=== PATIENT | male | born 1990 | race Caucasian/White ===

== ENCOUNTER 2016-10-24 14:22 | Inpatient (IN) ==
[2016-10-24] MEDS ORDERED: 0.9 % Sodium Chloride 1,000 ML IVC ONE ×2 (14:54→15:20)
[2016-10-24] MEDS: Ibuprofen 600 MG TABLET PO PRN (15:19)
[2016-10-24 15:22] LABS: Bilirubin,Urine Small (Negative); Blood,Urine Trace (Negative); Clarity,Urine Clear (Clear); Color,Urine Dark Yellow (Yellow); Glucose,Urine (UA) Normal (Normal); Ketones,Urine Trace mg/dL (Negative); Leukocyte Esterase,Urine Negative (Negative); Nitrite,Urine Negative (Negative); Protein,Urine 100 mg/dL (Neg-Trace); Specific Gravity,Urine > 1.030 (1.010-1.025); Urobilinogen,Urine Normal (Normal)
[2016-10-24 15:25] LABS: Bacteria,Urine None Seen per hpf (None-Few); Hyaline Casts,Urine None Seen per lpf (None-Few); RBC,Urine 0-3 per hpf (0-3); Squamous Epithelial Cell,Urine Moderate per lpf (None-Few); WBC,Urine 0-3 per hpf (0-3)
[2016-10-24] MEDS ORDERED: Ipratropium/Albuterol Neb 3 ML IH ONE (15:34)
[2016-10-24] MEDS ORDERED: methylPREDNISolone 125 MG in 0.9 % Sodium Chloride 100 ML IVPB ONE (15:34)
--- NOTE | 2016-10-24 15:34 | Emergency Department Note ---
Disposition Clinical Impression: Pneumonia Qualifiers: Pneumonia type: due to unspecified organism Laterality: unspecified laterality Lung location: unspecified part of lung Qualified Code(s): J18.9 - Pneumonia, unspecified organism Sepsis Qualifiers: Sepsis type: sepsis due to unspecified organism Qualified Code(s): A41.9 - Sepsis, unspecified organism Disposition: Admitted As Inpatient Condition: Good Referrals: NONE,PCP [Primary Care Provider] - Forms: ED Satisfaction Letter Time of Disposition: 16:43 General Adult HPI - General Chief complaint: ED Headache Stated complaint: PITTS Cough Time Seen by Provider: 10/24/16 14:54 Source: patient Limitations: no limitations Nursing Notes Reviewed: Yes Vital Signs Reviewed: Yes - History of Present Illness HPI Narrative: 26 year old male prsents to the ED with complaint of feeling ill for the past few days. State he has had a productive cough with fever of 102F at home in aiddition to a headache now and feels like this may be his pnuemoina. 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 PAtinet states that he was most recently admitted to [facility] in [place] for pneumonia sepsis. PAtient states that that he has also been nauseated and vomitting. He denies neck pain or menigneal syptoms at this time. Patient states he has not been around any other sick individuals or anyone else with simliar symptoms. Patient states that he does smoke but does not use inhalers. Pain Scale: 2 - Related Data Allergies Allergy/AdvReac Type Severity Reaction Status Date / Time No Known Allergies Allergy Verified 10/24/16 14:41 Constitutional: Reports: fever, chills, weakness. Denies: weight change Eyes: Denies: eye pain, eye discharge, vision change ENT ED: Denies: ear pain, throat pain, dental pain, hearing loss, epistaxis, congestion, dysphagia Cardiovascular: Reports: chest pain. Denies: palpitations, dyspnea on exertion , edema, syncope Respiratory: Reports: cough, dyspnea, wheezes. Denies: hemoptysis, stridor Gastrointestinal: Denies: abdominal pain, nausea, vomiting, diarrhea, constipation, hematemesis, melena, hematochezia Genitourinary: Denies: urgency, dysuria, frequency, hematuria Musculoskeletal: Denies: back pain, neck pain, arthralgia, myalgia Integumentary: Denies: rash, abrasion, lesions Neurological: Reports: headache. Denies: weakness, numbness, paresthesias, confusion, abnormal gait, vertigo Psychiatric: Denies: anxiety, depression, suicidal thoughts, homicidal thoughts , auditory hallucinations, visual hallucinations Endocrine: Denies: fatigue Hematological/Lymphatic: Denies: easy bleeding, easy bruising Allergic/Immunologic: Denies: facial swelling, urticaria Past Medical History - Past Medical History Medical history: Reports: other Psychiatric history: Reports: no psych history - Social History Smoking Status: Current every day smoker Smokeless Tobacco Status: No Alcohol use: Reports: none Drug use: Reports: other Physical Exam - General Limitations: no limitations General appearance: alert - Head Head exam: atraumatic, normocephalic, normal inspection - Eye Eye exam: Present: normal appearance, PERRL, EOMI - Expanded Eye Exam Pupils: Left: reactive - ENT ENT exam: normal exam, normal oropharynx, mucous membranes moist - Expanded ENT Exam External ear exam: Present: normal external inspection Mouth exam: Present: normal external inspection Teeth exam: Present: normal inspection Throat exam: Present: normal inspection - Neck Neck exam: Present: normal inspection, full ROM, trachea midline - Chest Chest inspection: Present: normal inspection, symmetric chest wall rise - Respiratory Respiratory exam: Present: wheezes - Cardiovascular Cardiovascular exam: Present: normal rhythm, tachycardia, normal heart sounds - Abdominal Exam Abdominal exam: Present: soft, Non-Tender. Absent: tenderness, distention, guarding, rebound, rigidity - Extremities Exam Extremities exam: Present: normal inspection, full ROM. Absent: tenderness, pedal edema - Expanded Upper Extremity Exam Shoulder exam: Present: normal inspection, full ROM Arm exam: Present: normal inspection, full ROM Elbow exam: Present: normal inspection, full ROM Forearm/Wrist exam: Present: normal inspection, full ROM Hand exam: Present: normal inspection, full ROM Vascular exam: Normal: capillary refill, radial pulse - Expanded Lower Extremity Exam Hip/Pelvis exam: Present: normal inspection, full ROM Upper leg exam: Present: normal inspection, full ROM Knee exam: Present: normal inspection, full ROM Lower leg exam: Present: normal inspection, full ROM Ankle exam: Present: normal inspection, full ROM Foot/toe exam: Present: normal inspection, full ROM Neurovascular/Tendon exam: Absent: motor deficit, sensory deficit, tendon deficit - Back Exam Back exam: Present: normal inspection, full ROM. Absent: tenderness - Neurological Exam Neurological exam: Present: alert, oriented X3 - Expanded Neurological Exam Patient oriented to: Present: person, place, time Coma Scale Eye Opening: Spontaneous Coma Scale Motor Response: Obeys Commands Coma Scale Verbal Response: Oriented Coma Scale Total: 15 - Psychiatric Psychiatric exam: Present: normal affect, normal mood - Skin Skin exam: Present: warm, dry, intact, normal color Course Course Narrative: we will do a sepsis workup on patient in addition to a CTA chest to rule out endocarditis/pneumonia. IVF and levauqin with brething treatments for therapy. - Reevaluation(s) Reevaluation #1: updated patient on results. WE will admit to medicine and start zosyn with levaquin. IVF running. Patinet is agreeable to plan. Time: 16:43 Reevaluation #2: patient has been updated and is agreeable to plan. Time: 16:54 - Consultations Consultation #1: discussed case with Dr. Negron and she accepts patien to her service. Time: 16:54 Vital Signs Temperature 103 F H 10/24/16 14:35 Pulse Rate 132 10/24/16 14:35 Respiratory Rate 18 10/24/16 14:35 Blood Pressure 125/75 10/24/16 14:35 O2 Sat by Pulse Oximetry 95 10/24/16 14:35 Temperature 103 F H 10/24/16 14:35 Pulse Rate 104 10/24/16 16:07 Respiratory Rate 18 10/24/16 16:27 Blood Pressure 116/58 10/24/16 16:07 O2 Sat by Pulse Oximetry 99 10/24/16 16:27 Oxygen Delivery Oxygen Delivery Room Air Medical Decision Making - Lab Data Result diagrams: 10/24/16 15:33 10/24/16 15:33 Lab Results 10/24/16 10/24/16 10/24/16 Range/Units 15:06 15:33 15:33 WBC 8.0 (4.3-11.1) K/mcL RBC 4.95 (4.19-5.50) M/mcL Hgb 13.9 (12.9-16.9) g/dL Hct 42.3 (37.5-50.1) % MCV 85.5 (83.0-100.0) fL MCH 28.1 (28.0-33.3) pg MCHC 32.9 (31.6-35.5) g/dL RDW 14.6 H (11.5-14.5) % Plt Count 94 L (140-400) K/mcL MPV 11.5 (9.4-12.4) fL Immature Gran % 0.5 (0-4) % Seg Neutrophils % 82.7 % Lymphocytes % 8.8 % Monocytes % 7.9 % Eosinophils % 0.0 % Basophils % 0.1 % Neutrophils # 6.6 (1.6-8.9) K/mcL Lymphocytes # 0.7 (0.6-4.6) K/mcL Monocytes # 0.6 (0.0-1.3) K/mcL Eosinophils # 0.0 (0.0-0.6) K/mcL Basophils # 0.0 (0.0-0.2) K/mcL Platelet Estimate Decreased L (Normal) Immature Plt Fraction 6.6 H (1.1-6.1) % PT 18.3 H (9.4-12.1) Seconds INR 1.7 APTT 31.8 (26.0-36.0) Seconds Sodium (136-145) mEq/L Potassium (3.5-4.5) mEq/L Chloride (98-109) mEq/L Carbon Dioxide (19-29) mEq/L BUN (8-26) mg/dL Creatinine (0.72-1.25) mg/dL Est GFR ( Amer) (> 60) Est GFR (Non-Af Amer) (> 60) BUN/Creatinine Ratio (6-26) Glucose (70-99) mg/dL Calculated Osmolality (280-300) Lactic Acid (0.5-2.2) mmol/L Calcium (8.6-10.8) mg/dL Phosphorus (2.3-4.7) mg/dL Magnesium (1.6-2.6) mg/dL Total Bilirubin (0.2-1.2) mg/dL Direct Bilirubin (0.0-0.5) mg/dL Indirect Bilirubin (0.0-1.2) mg/dL AST (5-34) Units/L ALT (0-55) Units/L Alkaline Phosphatase (38-126) Units/L Troponin I (0-0.03) ng/mL Serum Total Protein (6.0-8.3) g/dL Albumin (3.5-5.0) g/dL Globulin (2.4-3.5) g/dL Albumin/Globulin Ratio (1.1-2.2) Lipase (8-78) Units/L Urine Color Dark Yellow (Yellow) Urine Clarity Clear (Clear) Urine pH 6.0 (5.0-8.0) pH Units Ur Specific [place] > 1.030 H (1.010-1.025) Urine Protein 100 H (Neg-Trace) mg/dL Urine Glucose (UA) Normal (Normal) mg/dL Urine Ketones Trace H (Negative) mg/dL Urine Blood Trace H (Negative) Urine Nitrite Negative (Negative) Urine Bilirubin Small H (Negative) Urine Urobilinogen Normal (Normal) mg/dL Ur Leukocyte Esterase Negative (Negative) Urine Microscopic RBC 0-3 (0-3) per hpf Urine Microscopic WBC 0-3 (0-3) per hpf Ur Squamous Epith Cells Moderate H (None-Few) per lpf Urine Bacteria None Seen (None-Few) per hpf Hyaline Casts None Seen (None-Few) per lpf Ur Culture Indicated? NO (NO) 10/24/16 10/24/16 10/24/16 Range/Units 15:33 15:33 15:33 WBC (4.3-11.1) K/mcL RBC (4.19-5.50) M/mcL Hgb (12.9-16.9) g/dL Hct (37.5-50.1) % MCV (83.0-100.0) fL MCH (28.0-33.3) pg MCHC (31.6-35.5) g/dL RDW (11.5-14.5) % Plt Count (140-400) K/mcL MPV (9.4-12.4) fL Immature Gran % (0-4) % Seg Neutrophils % % Lymphocytes % % Monocytes % % Eosinophils % % Basophils % % Neutrophils # (1.6-8.9) K/mcL Lymphocytes # (0.6-4.6) K/mcL Monocytes # (0.0-1.3) K/mcL Eosinophils # (0.0-0.6) K/mcL Basophils # (0.0-0.2) K/mcL Platelet Estimate (Normal) Immature Plt Fraction (1.1-6.1) % PT (9.4-12.1) Seconds INR APTT (26.0-36.0) Seconds Sodium 132 L (136-145) mEq/L Potassium 3.7 (3.5-4.5) mEq/L Chloride 104 (98-109) mEq/L Carbon Dioxide 22 (19-29) mEq/L BUN 11 (8-26) mg/dL Creatinine 0.93 (0.72-1.25) mg/dL Est GFR ( Amer) > 60 (> 60) Est GFR (Non-Af Amer) > 60 (> 60) BUN/Creatinine Ratio 12 (6-26) Glucose 139 H (70-99) mg/dL Calculated Osmolality 276 L (280-300) Lactic Acid 1.0 (0.5-2.2) mmol/L Calcium 8.8 (8.6-10.8) mg/dL Phosphorus 1.4 L (2.3-4.7) mg/dL Magnesium 1.7 (1.6-2.6) mg/dL Total Bilirubin 0.6 (0.2-1.2) mg/dL Direct Bilirubin 0.3 (0.0-0.5) mg/dL Indirect Bilirubin 0.3 (0.0-1.2) mg/dL AST 17 (5-34) Units/L ALT 14 (0-55) Units/L Alkaline Phosphatase 80 (38-126) Units/L Troponin I 0.01 (0-0.03) ng/mL Serum Total Protein 7.0 (6.0-8.3) g/dL Albumin 3.5 (3.5-5.0) g/dL Globulin 3.5 (2.4-3.5) g/dL Albumin/Globulin Ratio 1.0 L (1.1-2.2) Lipase < 10 (8-78) Units/L Urine Color (Yellow) Urine Clarity (Clear) Urine pH (5.0-8.0) pH Units Ur Specific [place] (1.010-1.025) Urine Protein (Neg-Trace) mg/dL Urine Glucose (UA) (Normal) mg/dL Urine Ketones (Negative) mg/dL Urine Blood (Negative) Urine Nitrite (Negative) Urine Bilirubin (Negative) Urine Urobilinogen (Normal) mg/dL Ur Leukocyte Esterase (Negative) Urine Microscopic RBC (0-3) per hpf Urine Microscopic WBC (0-3) per hpf Ur Squamous Epith Cells (None-Few) per lpf Urine Bacteria (None-Few) per hpf Hyaline Casts (None-Few) per lpf Ur Culture Indicated? (NO) - EKG Data EKG #1 EKG attestation: Yes I reviewed and interpreted this EKG. EKG results narrative: sinus tachycardia with rate of 119. NO STEMI. normal intervals. no old ekg. 145
[2016-10-24] MEDS ORDERED: Levofloxacin 750 MG/150 ML 750 MG/150 ML BAG IVPB ONE (15:36)
[2016-10-24 15:44] LABS: Basophils % 0.1 %; Red Cell Distribution Width 14.6 % (11.5-14.5)
[2016-10-24 15:45] LABS: Hematocrit 42.3 % (37.5-50.1); Hemoglobin 13.9 g/dL (12.9-16.9); Immature Granulocytes % 0.5 % (0-4); Immature Platelets 6.6 % (1.1-6.1); Lymphocytes # 0.7 K/mcL (0.6-4.6); Lymphocytes % 8.8 %; Mean Corpuscular HGB Conc 32.9 g/dL (31.6-35.5); Mean Corpuscular Hemoglobin 28.1 pg (28.0-33.3); Mean Corpuscular Volume 85.5 fL (83.0-100.0); Mean Platelet Volume 11.5 fL (9.4-12.4); Monocytes # 0.6 K/mcL (0.0-1.3); Monocytes % 7.9 %; Neutrophils # 6.6 K/mcL (1.6-8.9); Red Blood Count 4.95 M/mcL (4.19-5.50); Segmented Neutrophils % 82.7 %
[2016-10-24 15:49] LABS: INR 1.7; Prothrombin Time 18.3 Seconds (9.4-12.1)
[2016-10-24 15:51] LABS: Activated Partial Thrombo Time 31.8 Seconds (26.0-36.0)
[2016-10-24 15:57] LABS: Alanine Aminotransferase 14 Units/L (0-55); Albumin 3.5 g/dL (3.5-5.0); Alkaline Phosphatase 80 Units/L (38-126); Aspartate Amino Transferase 17 Units/L (5-34); BUN/Creatinine Ratio 12 (6-26); Bilirubin,Direct 0.3 mg/dL (0.0-0.5); Bilirubin,Indirect 0.3 mg/dL (0.0-1.2); Bilirubin,Total 0.6 mg/dL (0.2-1.2); Blood Urea Nitrogen 11 mg/dL (8-26); Calcium 8.8 mg/dL (8.6-10.8); Carbon Dioxide 22 mEq/L (19-29); Chloride 104 mEq/L (98-109); Globulin 3.5 g/dL (2.4-3.5); Glucose 139 mg/dL (70-99); Magnesium 1.7 mg/dL (1.6-2.6); Osmolality,Calculated 276 (280-300); Phosphorous 1.4 mg/dL (2.3-4.7); Potassium 3.7 mEq/L (3.5-4.5); Sodium 132 mEq/L (136-145); eGFR For African Americans > 60 (> 60); eGFR For Non-African Americans > 60 (> 60)
[2016-10-24 15:58] LABS: Lipase < 10 Units/L (8-78)
[2016-10-24 16:05] LABS: Platelet Count 94 K/mcL (140-400)
[2016-10-24 16:06] LABS: Platelet Estimate Decreased (Normal)
[2016-10-24] MEDS ORDERED: methylPREDNISolone 125 MG/2 ML VIAL IVP ONE (16:18)
[2016-10-24] MEDS ORDERED: Piperacillin/Tazobactam 3.375 GM in D5% in Water (Mini-Bag+) 100 ML IVPB ONE (16:41)
[2016-10-24] MEDS ORDERED: Ondansetron ODT 4 MG TAB.RAPDIS SL PRN (18:14)
[2016-10-24] MEDS ORDERED: Naloxone 0.4 MG/ML INJ IVP PRN (18:14)
[2016-10-24] MEDS ORDERED: Acetaminophen 325 MG TABLET PO PRN (18:14)
[2016-10-24] MEDS ORDERED: Albuterol 2.5 MG/3 ML NEBULIZER IH PRN (18:18)
[2016-10-24] MEDS ORDERED: Vancomycin 1,250 MG in D5% in Water 250 ML IVPB SCH (19:00)
[2016-10-24] MEDS ORDERED: Vancomycin 1,250 MG in D5% in Water 250 ML IVPB PRN (19:45)
--- NOTE | 2016-10-24 20:24 | Internal Med History&Physical ---
<Radha Becker M - Last Filed: 10/24/16 20:18> Date of Encounter: 10/24/16 Time of Encounter: 20:18 Assessment and Plan (1) Sepsis Current visit: Yes Status: Acute Patient with fever of 103, tachycardia, and CTA consistent with pneumonia. blood cultures drawn and sent, sputum culture ordered. Legionella Antibody ordered. Given patient's IVDU history, and history of previous episode of endocarditis, will get echocardiogram to check for vegetation as well. Lactate normal at 1.0 IV fluids - 2L bolus given in ED, continue with 0.9NS at 125mL/hr Broad spectrum antibiotics with vanc, levaquin and zosyn Qualifiers: Sepsis type: sepsis due to unspecified organism Qualified Code(s): A41.9 - Sepsis, unspecified organism (2) Pneumonia Current visit: Yes Status: Acute Patient presents with fever, body aches, poor appetite, shortness of breath and pain on deep inspiration. CTA demonstrates multifocal pneumonia. IV fluids 0.9NS at 125mL/hr Given patient's IVDU history will cover with broad spectrum antibiotics with zosyn, vanc, and levaquin duoneb treatments QID albuterol nebulizer Q2h PRN titrate O2 to maintain saturation > 92%. incentive spirometry Qualifiers: Pneumonia type: due to unspecified organism Laterality: bilateral Lung location: unspecified part of lung Qualified Code(s): J18.9 - Pneumonia, unspecified organism (3) IV drug abuse Current visit: Yes Status: Acute Patient reports recent IV drug use. He has history of previous hospitalizations for sepsis and endocarditis related to his drug use. He presents today with sepsis and multifocal pneumonia. However, his WBC is normal. Will check Hepatitis panel and HIV. (4) Smoker Current visit: Yes Status: Acute Patient reports he smokes 2.5PPD and chews tobacco. Encouraged him to quit smoking. Smoking cessation education and nicotine patch ordered. (5) DVT prophylaxis Current visit: Yes Status: Acute anti-embolic stockings Lovenox SQ daily. Internal Medicine - H&P: HPI Chief complaint: fever, headache Admitted From: Emergency Dept Plans for Post Hospital Care: Home History of present illness: Mr. Juárez is a 26 year old male with IV drug use history presented to the ED with complaints of fever, headache. He reports he started feeling tired over the weekend and yesterday he woke up and "felt like ", with fever, chills, body aches, nausea and vomiting. He reports some shortness of breath and wheezing, but no coughing. He reports pain in the left side of his back when he takes a deep breath, but no chest pain, palpitations. He reports occasional lightheadedness. He denies any diarrhea, numbness or tingling. Patient admits to recent IV drug use. Evaluation in the ED included a CXR which showed LLL opacity consistent with atelectasis or pnuemonia, CTA showed patchy multifocal disease consistent with inflammatory or infectious process, no concern for PE. WBC was normal. Lactate normal. Patient was febrile with temperature of 103F and tachycardic, meeting criteria for sepsis. Blood cultures were drawn and sent. IV fluids were given and he was started on antibiotics with levaquin and zosyn. On exam, patient diaphoretic, mildly tachycardic with HR in low 100s. Lungs actually sounded clear to auscultation. No peripheral edema. Past Med Surg Social Fam HX - Past Medical History Medical history: other Psychiatric history: no psych history - Past Surgical History Surgical History: no surgical history - Social History Smoking Status: Current every day smoker Smokeless Tobacco Status: Yes (Chew) Alcohol use: none, rarely Drug use: IV Drug Use, other - Family History Mother Name: Shana Juárez Living Status: Still Living Hx Family Cardiac Disorders: Yes ([place]) Father History Unknown: Yes Living Status: Still Living Hx Family HEENT Disorders: Yes (1 eye, cataract) Internal Medicine - H&P: Meds Suboxone 8mg-2mg Tab 1 tab PO BID 10/24/16 [History] Allergies No Known Allergies Allergy (Verified 10/24/16 14:41) All Systems PM: A 10-system review of systems was performed and is negative for pertinent findings except as documented above in the HPI. - Constitutional Constitutional: anorexia, chills, fever(s), night sweats - EENT Eyes: no change in vision, no discharge, no pain, no photophobia Ears: no ear discharge, no ear pain, no tinnitus Nose, mouth and throat: no dysphagia, no nasal discharge, no neck pain, no sore throat - Cardiovascular Cardiovascular ROS IM: diaphoresis, lightheadedness, no chest pain, no dyspnea, no palpitations, no syncope - Respiratory Respiratory: dyspnea, wheezing, pain on inspiration, no cough, no excessive phlegm production - Gastrointestinal Gastrointestinal: nausea, vomiting, no abdominal pain, no diarrhea, no hematemesis, no hematochezia, no melena - Musculoskeletal Musculoskeletal ROS IM: no numbness, no tingling - Integumentary Integumentary IM: no rash, no unusual bruising - Neurological Neurological ROS: no confusion, no convulsions, no focal weakness, no numbness, no tingling, no tremor(s) - Hematologic/Lymphatic Hematologic/Lymphatic: no easy bruising - Constitutional Vitals: Temp Pulse Resp BP Pulse Ox 98.8 F 92 19 132/71 97 10/24/16 18:47 10/24/16 18:47 10/24/16 18:47 10/24/16 18:47 10/24/16 18:47 General appearance: Present: A&O X 3, pleasant, no acute distress - Head Head exam: Present: atraumatic, normocephalic - Eye Eye exam: Present: PERRL, conjuntiva pink, sclera anicteric Pupils: Present: PERRL - Neck Neck exam general surgery: Present: supple, trachea midline. Absent: lymphadenopathy - Respiratory Respiratory exam: Present: CTAB. Absent: accessory muscle use, rales, rhonchi, wheezes - Cardiovascular Cardiovascular exam: Present: RRR, +S1, +S2, tachycardia. Absent: diastolic murmur, gallop, rubs, systolic murmur - GI/Abdominal GI/Abdominal exam: Present: normal bowel sounds, soft, no peritoneal signs. Absent: distended, tenderness - Extremities Exam Extremities exam: Present: warm, radial pulses palpable and symmetrical. Absent : calf tenderness, cyanotic, pedal edema - Neurological Exam Neurological exam: Present: CN II-XII intact, oriented X3, no focal deficits. Absent: facial droop, speech deficit - Skin Skin exam: Present: dry, intact Internal Med - H&P Results - Labs CBC & Chem 7: 10/24/16 15:33 10/24/16 15:33 Labs: All Lab Results (24 Hours) 10/24/16 10/24/16 10/24/16 Range/Units 15:06 15:33 15:33 WBC 8.0 (4.3-11.1) K/mcL RBC 4.95 (4.19-5.50) M/mcL Hgb 13.9 (12.9-16.9) g/dL Hct 42.3 (37.5-50.1) % MCV 85.5 (83.0-100.0) fL MCH 28.1 (28.0-33.3) pg MCHC 32.9 (31.6-35.5) g/dL RDW 14.6 H (11.5-14.5) % Plt Count 94 L (140-400) K/mcL MPV 11.5 (9.4-12.4) fL Immature Gran % 0.5 (0-4) % Seg Neutrophils % 82.7 % Lymphocytes % 8.8 % Monocytes % 7.9 % Eosinophils % 0.0 % Basophils % 0.1 % Neutrophils # 6.6 (1.6-8.9) K/mcL Lymphocytes # 0.7 (0.6-4.6) K/mcL Monocytes # 0.6 (0.0-1.3) K/mcL Eosinophils # 0.0 (0.0-0.6) K/mcL Basophils # 0.0 (0.0-0.2) K/mcL Platelet Estimate Decreased L (Normal) Immature Plt Fraction 6.6 H (1.1-6.1) % PT 18.3 H (9.4-12.1) Seconds INR 1.7 APTT 31.8 (26.0-36.0) Seconds Sodium (136-145) mEq/L Potassium (3.5-4.5) mEq/L Chloride (98-109) mEq/L Carbon Dioxide (19-29) mEq/L BUN (8-26) mg/dL Creatinine (0.72-1.25) mg/dL Est GFR ( Amer) (> 60) Est GFR (Non-Af Amer) (> 60) BUN/Creatinine Ratio (6-26) Glucose (70-99) mg/dL Calculated Osmolality (280-300) Lactic Acid (0.5-2.2) mmol/L Calcium (8.6-10.8) mg/dL Phosphorus (2.3-4.7) mg/dL Magnesium (1.6-2.6) mg/dL Total Bilirubin (0.2-1.2) mg/dL Direct Bilirubin (0.0-0.5) mg/dL Indirect Bilirubin (0.0-1.2) mg/dL AST (5-34) Units/L ALT (0-55) Units/L Alkaline Phosphatase (38-126) Units/L Troponin I (0-0.03) ng/mL Serum Total Protein (6.0-8.3) g/dL Albumin (3.5-5.0) g/dL Globulin (2.4-3.5) g/dL Albumin/Globulin Ratio (1.1-2.2) Lipase (8-78) Units/L Urine Color Dark Yellow (Yellow) Urine Clarity Clear (Clear) Urine pH 6.0 (5.0-8.0) pH Units Ur Specific [place] > 1.030 H (1.010-1.025) Urine Protein 100 H (Neg-Trace) mg/dL Urine Glucose (UA) Normal (Normal) mg/dL Urine Ketones Trace H (Negative) mg/dL Urine Blood Trace H (Negative) Urine Nitrite Negative (Negative) Urine Bilirubin Small H (Negative) Urine Urobilinogen Normal (Normal) mg/dL Ur Leukocyte Esterase Negative (Negative) Urine Microscopic RBC 0-3 (0-3) per hpf Urine Microscopic WBC 0-3 (0-3) per hpf Ur Squamous Epith Cells Moderate H (None-Few) per lpf Urine Bacteria None Seen (None-Few) per hpf Hyaline Casts None Seen (None-Few) per lpf Ur Culture Indicated? NO (NO) 10/24/16 10/24/16 10/24/16 Range/Units 15:33 15:33 15:33 WBC (4.3-11.1) K/mcL RBC (4.19-5.50) M/mcL Hgb (12.9-16.9) g/dL Hct (37.5-50.1) % MCV (83.0-100.0) fL MCH (28.0-33.3) pg MCHC (31.6-35.5) g/dL RDW (11.5-14.5) % Plt Count (140-400) K/mcL MPV (9.4-12.4) fL Immature Gran % (0-4) % Seg Neutrophils % % Lymphocytes % % Monocytes % % Eosinophils % % Basophils % % Neutrophils # (1.6-8.9) K/mcL Lymphocytes # (0.6-4.6) K/mcL Monocytes # (0.0-1.3) K/mcL Eosinophils # (0.0-0.6) K/mcL Basophils # (0.0-0.2) K/mcL Platelet Estimate (Normal) Immature Plt Fraction (1.1-6.1) % PT (9.4-12.1) Seconds INR APTT (26.0-36.0) Seconds Sodium 132 L (136-145) mEq/L Potassium 3.7 (3.5-4.5) mEq/L Chloride 104 (98-109) mEq/L Carbon Dioxide 22 (19-29) mEq/L BUN 11 (8-26) mg/dL Creatinine 0.93 (0.72-1.25) mg/dL Est GFR ( Amer) > 60 (> 60) Est GFR (Non-Af Amer) > 60 (> 60) BUN/Creatinine Ratio 12 (6-26) Glucose 139 H (70-99) mg/dL Calculated Osmolality 276 L (280-300) Lactic Acid 1.0 (0.5-2.2) mmol/L Calcium 8.8 (8.6-10.8) mg/dL Phosphorus 1.4 L (2.3-4.7) mg/dL Magnesium 1.7 (1.6-2.6) mg/dL Total Bilirubin 0.6 (0.2-1.2) mg/dL Direct Bilirubin 0.3 (0.0-0.5) mg/dL Indirect Bilirubin 0.3 (0.0-1.2) mg/dL AST 17 (5-34) Units/L ALT 14 (0-55) Units/L Alkaline Phosphatase 80 (38-126) Units/L Troponin I 0.01 (0-0.03) ng/mL Serum Total Protein 7.0 (6.0-8.3) g/dL Albumin 3.5 (3.5-5.0) g/dL Globulin 3.5 (2.4-3.5) g/dL Albumin/Globulin Ratio 1.0 L (1.1-2.2) Lipase < 10 (8-78) Units/L Urine Color (Yellow) Urine Clarity (Clear) Urine pH (5.0-8.0) pH Units Ur Specific [place] (1.010-1.025) Urine Protein (Neg-Trace) mg/dL Urine Glucose (UA) (Normal) mg/dL Urine Ketones (Negative) mg/dL Urine Blood (Negative) Urine Nitrite (Negative) Urine Bilirubin (Negative) Urine Urobilinogen (Normal) mg/dL Ur Leukocyte Esterase (Negative) Urine Microscopic RBC (0-3) per hpf Urine Microscopic WBC (0-3) per hpf Ur Squamous Epith Cells (None-Few) per lpf Urine Bacteria (None-Few) per hpf Hyaline Casts (None-Few) per lpf Ur Culture Indicated? (NO) - Diagnostic Studies Chest x-ray Additional comments: Chest X-Ray 10/24/16 14:55 IMPRESSION: Nodule like density overlying the left lung base which may be due to nipple shadow or a true pulmonary nodule. A follow-up PA and lateral view chest x-ray with nipple markers is recommended. Small amount of left lower lobe atelectasis versus pneumonia. D/ / Wilmer Leblanc MD / Wilmer Leblanc MD Interpreting Provider: Wilmer Leblanc MD CT scan - chest Additional comments: Chest CTA 10/24/16 15:20 IMPRESSION: 1. There is no convincing evidence of a pulmonary embolus. 2. Scattered ground-glass opacities are seen within the left upper and bilateral lower lobes, which may represent a multifocal infectious or inflammatory process. 3. There appears to be scarring within the left lower lobe. D/ / Jean Ware MD / Jean Ware MD Interpreting Provider: Jean Ware MD <Mere Negron - Last Filed: 10/25/16 18:46> Date of Encounter: 10/25/16 Internal Medicine - H&P: HPI History of present illness: Mr. Juárez is a 26 year old male Past Med Surg Social Fam HX - Family History Mother Name: Shana Juárez Living Status: Still Living Hx Family Cardiac Disorders: Yes ([place]) Father History Unknown: Yes Living Status: Still Living Hx Family HEENT Disorders: Yes (1 eye, cataract) All Systems PM: A 10-system review of systems was performed and is negative for pertinent findings except as documented above in the HPI. - Constitutional Vitals: Temp Pulse Resp BP Pulse Ox 98.1 F 80 14 111/60 97 10/25/16 16:44 10/25/16 16:44 10/25/16 16:44 10/25/16 16:44 10/25/16 16:44 Internal Med - H&P Results - Labs CBC & Chem 7: 10/25/16 08:24 10/25/16 08:24 Labs: Short CBC 10/25/16 Range/Units 08:24 WBC 6.3 (4.3-11.1) K/mcL Hgb 12.8 L (12.9-16.9) g/dL Hct 38.6 (37.5-50.1) % Plt Count 108 L (140-400) K/mcL Neutrophils # 4.9 (1.6-8.9) K/mcL BMP 10/25/16 08:24 Sodium 139 D Potassium 4.0 Chloride 110 H Carbon Dioxide 22 BUN 12 Creatinine 0.78 Glucose 160 H Calcium 9.0 - Attending Attestation I examined this patient and my medical decision-making was reviewed with the AN/SSN 2 4 OPERATOR. I agree with the documented findings, disposition and treatment plan as described .
[2016-10-24] MEDS: Vancomycin 1,250 MG in D5% in Water 250 ML IVPB SCH (20:30)
[2016-10-24] MEDS: Nicotine 21 MG PATCH.TD24 TD SCH (20:30)
[2016-10-24] MEDS: 0.9 % Sodium Chloride 1,000 ML IVC SCH (20:30)
[2016-10-24] MEDS: Ipratropium/Albuterol Neb 3 ML IH SCH (22:11)
[2016-10-25] MEDS ORDERED: Piperacillin/Tazobactam 3.375 GM in D5% in Water (Mini-Bag+) 100 ML IVPB SCH ×2 (03:00)
[2016-10-25] MEDS: Ibuprofen 600 MG TABLET PO PRN (03:22)
[2016-10-25] MEDS: Ipratropium/Albuterol Neb 3 ML IH SCH ×5 (04:08→22:43)
[2016-10-25 04:53] LABS: Enterococcus by PCR Not Detected (Not Detect); Staphylococcus aureus by PCR ***DETECTED*** (Not Detect); mecA Methicillin-Resist Gene ***DETECTED*** (Not Detect)
[2016-10-25 04:54] LABS: Acinetobacter baumannii by PCR Not Detected (Not Detect); Candida albicans by PCR Not Detected (Not Detect); Candida glabrata by PCR Not Detected (Not Detect); Candida krusei by PCR Not Detected (Not Detect); Candida parapsilosis by PCR Not Detected (Not Detect); Candida tropicalis by PCR Not Detected (Not Detect); Escherichia coli by PCR Not Detected (Not Detect); Klebsiella oxytoca by PCR Not Detected (Not Detect); Klebsiella pneumoniae by PCR Not Detected (Not Detect); Pseudomonas aeruginosa by PCR Not Detected (Not Detect); Serratia marcescens by PCR Not Detected (Not Detect); Streptococcus agalactiae(B)PCR Not Detected (Not Detect); Streptococcus by PCR Not Detected (Not Detect); Streptococcus pneumoniae PCR Not Detected (Not Detect); Streptococcus pyogenes (A) PCR Not Detected (Not Detect)
[2016-10-25] MEDS: Vancomycin 1,250 MG in D5% in Water 250 ML IVPB SCH (06:00)
[2016-10-25] MEDS: 0.9 % Sodium Chloride 1,000 ML IVC SCH ×2 (06:00→23:25)
[2016-10-25] MEDS: *HR* Enoxaparin 40 MG/0.4 ML SYRINGE SQ SCH (06:01)
[2016-10-25 09:08] LABS: Basophils % 0.2 %; Hematocrit 38.6 % (37.5-50.1); Hemoglobin 12.8 g/dL (12.9-16.9); Immature Granulocytes % 0.3 % (0-4); Immature Platelets 7.6 % (1.1-6.1); Lymphocytes # 0.9 K/mcL (0.6-4.6); Lymphocytes % 14.1 %; Mean Corpuscular HGB Conc 33.2 g/dL (31.6-35.5); Mean Corpuscular Hemoglobin 28.5 pg (28.0-33.3); Mean Platelet Volume 11.1 fL (9.4-12.4); Monocytes # 0.5 K/mcL (0.0-1.3); Monocytes % 8.2 %; Neutrophils # 4.9 K/mcL (1.6-8.9); Platelet Count 108 K/mcL (140-400); Red Blood Count 4.49 M/mcL (4.19-5.50); Red Cell Distribution Width 14.7 % (11.5-14.5); Segmented Neutrophils % 77.2 %
[2016-10-25 09:18] LABS: BUN/Creatinine Ratio 15 (6-26); Blood Urea Nitrogen 12 mg/dL (8-26); Carbon Dioxide 22 mEq/L (19-29); Chloride 110 mEq/L (98-109); Glucose 160 mg/dL (70-99); Osmolality,Calculated 291 (280-300); Sodium 139 mEq/L (136-145); eGFR For African Americans > 60 (> 60); eGFR For Non-African Americans > 60 (> 60)
[2016-10-25] MEDS ORDERED: Vancomycin 500 MG in D5% in Water (Mini-Bag+) 100 ML IVPB ONE (10:56)
[2016-10-25] MEDS: Nicotine 21 MG PATCH.TD24 TD SCH (12:54)
[2016-10-25 13:07] LABS: Hepatitis B Surface Antigen Nonreactive (Nonreactive)
[2016-10-25 13:09] LABS: Hepatitis B Surface Antibody 138.98 mIU/mL; Hepatitis C Virus Antibody Reactive (Nonreactive)
--- NOTE | 2016-10-25 14:51 | Infectious Disease Consult ---
Date of Encounter: 10/25/16 Time of Encounter: 14:48 Assessment and Plan (1) Acute infective endocarditis Status: Acute Assessment and plan: Modified Humphreys's Criteria: Two major (MRSA bacteremia and valvular vegetations) and two minor (fever, IV drug use) criteria for infective endocarditis Transthoracic Echocardiogram performed 10/25/16 revealed LVEF 60-65% with thickened tricuspid valve with evidence of vegetation on the tip of the anterior leaflet. Difficult to quantify precisely, but is about 0.87 cm x 0.99 cm. There is resultant malcoaptation of the TV leaflets and severe eccentric tricuspid regurgitation directed towards the interatrial septum. There is also a subvalvular echodensity as well as an echodensity at the base of the septal leaflet possibly product support representative of vegetations as well. CXR which showed LLL opacity consistent with atelectasis or pnuemonia and nodule like density overlying the left lung base which may be due to nipple shadow or a true pulmonary nodule. CTA revealed scattered ground-glass opacities are seen within the left upper and bilateral lower lobes, which may represent a multifocal infectious or inflammatory process. There appears to be scarring within the left lower lobe. Blood cultures collected 10/24/16 were positve for MRSA in 2/2 sets He was started on vancomycin, levaquin, and zosyn 10/24/16 Recommendations: continue vancomycin with goal trough around 15-20 duration of treatment 6-8 weeks monitor llabs including renal function will need a picc line prior to d/c?? but patient is IVDU so i'm not sure what the plan is, will discuss with case assembler. Qualifiers: Infective endocarditis organism: bacterial Qualified Code(s): I33.0 - Acute and subacute infective endocarditis (2) Sepsis Status: Acute Assessment and plan: Two SIRS criteria of fever of 103, tachycardia, and bacteremia and source of infection Labs on admission revealed normal WBC and Lactic acid levels Blood cultures collected 10/24/16 were positve for MRSA in 2/2 sets He was started on vancomycin, levaquin, and zosyn 10/24/16 Qualifiers: Sepsis type: methicillin resistant Staphylococcus aureus Qualified Code(s) : A41.02 - Sepsis due to Methicillin resistant Staphylococcus aureus (3) IV drug abuse Status: Chronic (4) Hepatitis C Status: Acute Assessment and plan: Management per primary team Qualifiers: Viral hepatitis chronicity: chronic Hepatic coma status: without hepatic coma Qualified Code(s): B18.2 - Chronic viral hepatitis C (5) Septic pulmonary embolism Status: Acute Assessment and plan: causative organism likely MRSA continue vancomycin may d/c levaquijn and zosyn Qualifiers: Chronicity: acute Acute cor pulmonale presence: without acute cor pulmonale Qualified Code(s): I26.90 - Septic pulmonary embolism without acute cor pulmonale (6) Tricuspid regurgitation Status: Acute Assessment and plan: Chronic. Cardiology consulted Qualifiers: Qualified Code(s): I07.1 - Rheumatic tricuspid insufficiency Infectious Disease HPI - Data of Consult Consult date: 10/25/16 Requesting Physician: Susan Perez MD Primary Care Provider: PCP NONE - Consult Narrative Reason for consult: Infective endocarditis with h/o- IVDU History of present illness: Mr. Juárez is a 26 year old male was admitted on 10/24/16 for fever and headache. Infectious disease is consulted on 10/25/16 for Infective endocarditis with h/o IVDU. Mr. Juárez is a 26 year old male with a PMH significant for Hepatitis, IVDU, and previous infective endocarditis in 2010 who presented complaining of fever, chills, body aches, SOB, nausea, vomiting, and headache for the past 2 days. Patient admits to recent IV opana use within the past 3 weeks. He reports previous treatment with vancomycin and cefepime for a total of 3 weeks while in [place]. 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 He denies any chest pain, syncope, presyncope , hemoptysis, or cirrhosis. Since admission he has met two SIRS criteria of fever of 103, tachycardia Labs on admission revealed normal WBC and Lactic acid levels CXR which showed LLL opacity consistent with atelectasis or pnuemonia and nodule like density overlying the left lung base which may be due to nipple shadow or a true pulmonary nodule. CTA revealed scattered ground-glass opacities are seen within the left upper and bilateral lower lobes, which may represent a multifocal infectious or inflammatory process. There appears to be scarring within the left lower lobe. Blood cultures collected 10/24/16 were positve for MRSA in 2/2 sets He was started on vancomycin, levaquin, and zosyn 10/24/16 Transthoracic Echocardiogram performed 10/25/16 revealed LVEF 60-65% with thickened tricuspid valve with evidence of vegetation on the tip of the anterior leaflet. Difficult to quantify precisely, but is about 0.87 cm x 0.99 cm. There is resultant malcoaptation of the TV leaflets and severe eccentric tricuspid regurgitation directed towards the interatrial septum. There is also a subvalvular echodensity as well as an echodensity at the base of the septal leaflet possibly product support representative of vegetations as well. Other consultants include cardiology. CC: Susan Perez MD Past Med Surg Social Fam HX - Past Medical History Medical history: other Psychiatric history: no psych history - Past Surgical History Surgical History: no surgical history - Social History Smoking Status: Current every day smoker Smokeless Tobacco Status: Yes (Chew) Alcohol use: none, rarely Drug use: IV Drug Use, other - Family History Mother Name: Shana Juárez Living Status: Still Living Hx Family Cardiac Disorders: Yes ([place]) Father History Unknown: Yes Living Status: Still Living Hx Family HEENT Disorders: Yes (1 eye, cataract) Infectious Disease-CN:Meds Suboxone 8mg-2mg Tab 1 tab PO BID 10/24/16 [History] Allergies No Known Allergies Allergy (Verified 10/24/16 14:41) Review of systems: Travel: denies recent travel Animal exposure:denies Sick contacts: Denies. Diet: denies ingestion of undercooked or raw meats. Dental: denies recent dental procedures - Constitutional Constitutional: Present: chills, excessive sweating, fatigue, fever(s), lethargy , weakness - EENT Eyes: Absent: change in vision Nose, mouth and throat: Absent: throat swelling - Cardiovascular Cardiovascular: Present: palpitations. Absent: chest pain, chest pain with activity, dyspnea, edema - Respiratory Respiratory: Present: dyspnea. Absent: wheezing, chest congestion - Gastrointestinal Gastrointestinal: Absent: abdominal pain, diarrhea, nausea, vomiting - Integumentary Integumentary: Present: lesions, new lesions. Absent: change in hair, change in nails, changing lesions, erythema, rash, skin ulcer - Neurological Neurological: Present: weakness. Absent: numbness, sensory deficit, syncope - Endocrine Endocrine: Present: fatigue. Absent: cold intolerance, polydipsia, polyphagia, polyuria - Hematologic/Lymphatic Hematologic/Lymphatic: Absent: easy bleeding, easy bruising, lymphadenopathy Exam - Constitutional Vitals: Temp Pulse Resp BP Pulse Ox 97.6 F 73 14 127/98 96 10/25/16 11:37 10/25/16 11:37 10/25/16 11:37 10/25/16 11:37 10/25/16 11:37 General appearance: cooperative, no acute distress, no febrile - Head Head exam: Present: atraumatic, normal inspection, normocephalic - Eye Eye exam: Present: PERRL, conjuntiva pink - ENT ENT exam: Present: mucous membranes moist, normal oropharynx - Neck Neck exam: Present: normal inspection. Absent: lymphadenopathy, tenderness, thyromegaly - Respiratory Respiratory exam: Present: decreased breath sounds (Left lower lobe). Absent: accessory muscle use, rales, rhonchi, wheezes - Cardiovascular Cardiovascular exam: Present: RRR, +S1, +S2, systolic murmur (3/6) - GI/Abdominal GI/Abdominal exam: Present: normal bowel sounds, soft. Absent: guarding, rebound - Extremities Exam Extremities exam: Present: full ROM. Absent: pedal edema Additional comments: Multiple skin lesions - Back Exam Additional comments: No vertebral tenderness - Neurological Exam Neurological exam: Present: alert, CN II-XII intact, oriented X3. Absent: altered, motor sensory deficit - Psychiatric Psychiatric exam: Present: anxious, normal affect - Skin Skin exam: Present: dry, warm. Absent: rash Additional comments: Multiple 5 mm excoriations in multiple stages of healing on arms and legs. No Meme nose, Janeway lesions, or splinter hemorrhages noted Infectious Disease CN: Results - Labs CBC & Chem 7: 10/25/16 08:24 10/25/16 08:24 Serology: Serology 10/25/16 10/25/16 Range/Units 08:24 08:24 Hep Bs Antigen Nonreactive (Nonreactive) Hep Bs Antibody 138.98 mIU/mL Hepatitis C Ab Screen Reactive H (Nonreactive) HIV Ag/Ab Combo Qual Nonreactive (Nonreactive) Consult Discharge Plan - Plan Referrals: NONE,PCP [Primary Care Provider] - - Attending Attestation I examined this patient and my medical decision-making was reviewed with the Resident Physician. I agree with the documented findings, disposition and treatment plan as described except to the extent set forth below. Patient is a 26 year old gentleman with past medical history mentioned below including history of endocarditis in 2010 which was treated with IV antbiotics in [place] but he states he was only treated for 3 weeks? Patient is not the greatest historian but he states he was having weakness, fevers and chills. patient came here for eval. was noted to be septic and work up revealed bacteremia with MRSA and septic emboli to the lungs bilaterally with mobile mass on the aortic valve 0.9 mm in size. Patient was evaluated and initial recommendation was to transfer to [place] where he recently had another endocarditis ?? but patient refused Currently patient does not appear to be toxic, comfortable. Eager to go home. girlfriend at bedside At this point, repeat blood cultures in 48 hours continue vancomycin with goal trough of 15-20 monitor labs closely including kidney function d/c levaquin d/c zosyn check HIV status duration of treatment 6-8 weeks
--- NOTE | 2016-10-25 15:48 | Cardiology Consult Note ---
<Tc Singh - Last Filed: 10/25/16 17:08> Date of Encounter: 10/25/16 Time of Encounter: 15:40 Assessment and Plan (1) Infective endocarditis Current Visit: Yes Status: Acute Patient has 2 major ( MRSA bacteremia and valvular vegetations) and 2 minor ( fever, IVDA) DuKes criteria. TTE revals: "Thickened tricuspid valve with evidence of vegetation on the tip of the anterior leaflet. Difficult to quantify precisely, but is about 0.87 cm x 0.99 cm. There is resultant malcoaptation of the TV leaflets and severe eccentric tricuspid regurgitation directed towards the interatrial septum. There is also a subvalvular echodensity as well as an echodensity at the base of the septal leaflet possibly client account representative of vegetations as well." Patient reports history of valvular regurgitation. I have requested records from [facility]. Currently he is hemodynamically stable. No signs of heart failure on exam. He has multifocal pneumonia seen on CTA. I reviewed these images. Would consider that these are possible septic emboli. Recommendations: Patient has Tricuspid vegetation with severe tricuspid regurgitaiton. Not currently in heart failure but at risk. Recommend evaluation by CT surgery. We will review prior echocardiograms to see if his severe tricuspid regurgitation is new. We would also recommend Infectious disease consultation and would value their recommendations and insight as well. antibiotics per primary team. Thank you for the consultation and the ability to participate in this patients care. Qualifiers: Infective endocarditis organism: bacterial Chronicity: acute Qualified Code(s): I33.0 - Acute and subacute infective endocarditis (2) Tricuspid regurgitation Current Visit: Yes Status: Acute severe. No signs of heart failure at this time. We will attempt to obtain prior echocardiograms from [facility]. Qualifiers: Qualified Code(s): I07.1 - Rheumatic tricuspid insufficiency (3) Right bundle branch block Current Visit: Yes Status: Acute (4) Sepsis Current Visit: Yes Status: Acute patient meets sepsis criteria with fever, tachycardia and bacteremia. Source is likely from IV drug use. currently on IV antibiotics. management per primary team. Qualifiers: Qualified Code(s): A41.9 - Sepsis, unspecified organism (5) Bacteremia Current Visit: Yes Status: Acute appears to be MRSA by PCR. agree with ID consult. Discussion w patient/family: The assessment and plan as outlined above was discussed with the patient and/or family members who expressed understanding and agreement. All questions were answered. Thank you for involving us in the care of your patient. Please call with any questions. History of Present Illness Consult date: 10/25/16 Requesting physician: Susan Perez Consult reason: Infective endocarditis Chief complaint: Cough History of present illness: Mr. Juárez is a 26 year old male who was admitted to [facility] on 10/24/16. Cardiology is consulted on 10/25/16 for infective endocarditis. This is a 26 y.o. male who states that he was born with a heart murmur but unsure of the exact diagnosis. He states he has also had damage to the valve and has had infective endocarditis 2-3 times in the past. He states that his most recent episode was in March and he was treated at [facility]. He states that her was treated with vancomycin and it was changed to cefepime. He states he took the antibioitcs for several weeks. He states that he is followed by a electrotyper helper at [facility] and they have been "watching his valve". Today Mr. Xie states that he has been doing well and goes to a suboxone clinic out of [facility] and has not used IV drugs until approximately 12 days ago when he injected opana mixed with saline. He states that he later developed an cough and malaise and so he came to the Emergency room. He denies any chest pain, syncope, presyncope. He admits to a nonproductive cough but denies wheeze and dyspnea. 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 He denies any further complaints or concerns at this time. Past Med Surg Social Fam HX - Past Medical History Medical history: other Psychiatric history: no psych history - Past Surgical History Surgical History: no surgical history - Social History Smoking Status: Current every day smoker Smokeless Tobacco Status: Yes (Chew) Alcohol use: none, rarely Drug use: IV Drug Use, other - Family History Mother Name: Shana Juárez Living Status: Still Living Hx Family Cardiac Disorders: Yes ([place]) Father History Unknown: Yes Living Status: Still Living Hx Family HEENT Disorders: Yes (1 eye, cataract) Medications and Allergies Suboxone 8mg-2mg Tab 1 tab PO BID 10/24/16 [History] Allergies No Known Allergies Allergy (Verified 10/24/16 14:41) All Systems Review: A 10-system review of systems was performed and is negative for pertinent findings except as documented above in the HPI. - Constitutional Constitutional: chills, fever(s), malaise, no anorexia, no fatigue, no headache( s), no night sweats, no weakness, no weight gain, no weight loss - EENT Eyes: no blurred vision, no loss of vision, no pain Nose, mouth and throat: no bleeding gums, no sinus pain, no sore throat - Cardiovascular Cardiovascular: no chest pain at rest, no chest pain with exertion, no dyspnea at rest, no dyspnea on exertion, no irregular heart rhythm, no orthopnea, no palpitations, no rapid heart rate, no slow heart rate, no syncope - Respiratory Respiratory: cough, no dyspnea, no hemoptysis, no wheezing - Gastrointestinal Gastrointestinal: no abdominal pain, no coffee ground emesis, no hematochezia - Genitourinary Genitourinary: no dysuria, no hematuria - Musculoskeletal Musculoskeletal: no arthralgias, no muscle weakness - Integumentary Integumentary: no erythema, no rash - Neurological Neurological: no abnormal speech, no dizziness, no focal weakness, no loss of vision, no syncope - Hematological/Lymphatic Hematologic/Lymphatic: no easy bleeding, no easy bruising Physical Examination General: Conversant, No Apparent Distress HEENT: Atraumatic, Normocephaly, Mucus Membranes Moist Neck: No JVD, Normal carotid pulses Cardiac: Reg Rate and Rhythm, Normal S1 and S2, Other (He has a 3/6 systolic murmur that has a click at the end of the murmur. mildly palpable thrill of the chest wall. ) Lungs: No Wheeze, Rales, Rhonchi, Other (mild course breath sunds in the left lower lung field. ) Neuro: Alert and responsive, No focal deficits noted Abdomen: Soft, Non-Tender Skin: Other (he has multiple skin lesions appears to be scarpes and benson. Dose not appear to have osler nodes or janeway lesions no splinter hemoorhages. ) Musculoskeletal: No Chest Wall Tenderness Extremities: No Clubbing, No Cyanosis, No Edema Results 10/25/16 08:24 10/25/16 08:24 Lab Results 10/25/16 10/25/16 08:24 08:24 WBC 6.3 Hgb 12.8 L Hct 38.6 Plt Count 108 L Sodium 139 D Potassium 4.0 Chloride 110 H Carbon Dioxide 22 BUN 12 Creatinine 0.78 Glucose 160 H Calcium 9.0 Consult Discharge Plan - Plan Referrals: NONE,PCP [Primary Care Provider] - <Veronika Cedillo - Last Filed: 10/25/16 17:31> Date of Encounter: 10/25/16 Assessment and Plan Discussion w patient/family: The assessment and plan as outlined above was discussed with the patient and/or family members who expressed understanding and agreement. All questions were answered. Thank you for involving us in the care of your patient. Please call with any questions. History of Present Illness History of present illness: Mr. Juárez is a 26 year old male All Systems Review: A 10-system review of systems was performed and is negative for pertinent findings except as documented above in the HPI. Physical Examination Vital Signs, Last 4 Hours Temp Pulse Resp BP Pulse Ox 10/25/16 16:44 98.1 F 80 14 111/60 97 Results 10/25/16 08:24 10/25/16 08:24 Lab Results 10/25/16 10/25/16 08:24 08:24 WBC 6.3 Hgb 12.8 L Hct 38.6 Plt Count 108 L Sodium 139 D Potassium 4.0 Chloride 110 H Carbon Dioxide 22 BUN 12 Creatinine 0.78 Glucose 160 H Calcium 9.0 - Attending Attestation I examined this patient and my medical decision-making was reviewed with the Resident Physician. I agree with the documented findings, disposition and treatment plan. Mr. Juárez has infective endocarditis. I personally reviewed the echo images demonstrating multiple mobile vegetations and a degenerated, poorly functioning tricuspid valve with severe tricuspid regurgitation. He will need surgery to replace this valve at some point. Presently, he doesn't have heart failure. However, I am doubtful that antibiotics alone will be effective at resolving his infection given that there are numerous vegetations and probably septic emboli as well. I recommend that CTS evaluate the patient. Infectious disease is also involved.
[2016-10-25] MEDS ORDERED: Levofloxacin 750 MG/150 ML 750 MG/150 ML BAG IVPB SCH (16:00)
--- NOTE | 2016-10-25 17:35 | Internal Med Progress Note ---
Date of Encounter: 10/25/16 Time of Encounter: 12:45 - Assessment and plan (1) Infective endocarditis Current Visit: Yes Status: Acute Assessment and plan: Patient has history of IV drug abuse and previous history of endocarditis, presents with fever, positive blood cultures and echocardiogram evidence of severe tricuspid regurgitation and multiple vegetations on tricuspid valve. Currently shows no signs of heart failure. Hemodynamically stable. Continue IV vancomycin and Levaquin. Cardiology consult. Infectious diseases consult. Case discussed with cardiothoracic surgery, recommended transfer to tertiary care center if indicated. High risk for complications including cardiac decompensation, respiratory failure, cardiogenic shock. Patient will likely require long-term IV antibiotics. He currently refuses to be placed at an extended care facility due to history of IV drug abuse and insists on being discharged home with IV antibiotics. Qualifiers: Infective endocarditis organism: bacterial Chronicity: acute Qualified Code(s): I33.0 - Acute and subacute infective endocarditis (2) Pneumonia Current Visit: Yes Status: Acute Assessment and plan: Patient is noted to have groundglass opacities and changes suggestive of septic emboli in bilateral lungs, likely associated with infectious endocarditis and IV drug abuse. 2 out of 2 initial blood cultures grew gram-positive cocci, presumptively MRSA. Contact precautions and continue IV vancomycin. Continue supportive care and supplemental oxygen. Qualifiers: Pneumonia type: due to methicillin-resistant Staphylococcus aureus (MRSA) Laterality: bilateral Lung location: unspecified part of lung Qualified Code (s): J15.212 - Pneumonia due to Methicillin resistant Staphylococcus aureus (3) Sepsis Current Visit: Yes Status: Acute Assessment and plan: Patient admitted with fever, tachycardia with underlying infectious endocarditis , septic emboli to bilateral lungs. Continue IV antibiotics, IV hydration and supportive care. High risk for complications. Qualifiers: Sepsis type: methicillin resistant Staphylococcus aureus Qualified Code(s) : A41.02 - Sepsis due to Methicillin resistant Staphylococcus aureus (4) IV drug abuse Current Visit: Yes Status: Chronic Assessment and plan: human services program specialist consult. (5) Smoker Current Visit: Yes Status: Chronic - Subjective Interval history: Reports feeling better; improved fever/chills, generalized bodyaches, and fatigue; - Constitutional Vitals: Temp Pulse Resp BP Pulse Ox 98.1 F 80 14 111/60 97 10/25/16 16:44 10/25/16 16:44 10/25/16 16:44 10/25/16 16:44 10/25/16 16:44 General appearance: Present: A&O X 3, answers questions appropriately - Respiratory Respiratory exam: Present: CTAB (coarse breath sounds B/L). Absent: accessory muscle use, rales, rhonchi, wheezes - Cardiovascular Cardiovascular exam: Present: RRR, +S1, +S2. Absent: diastolic murmur, gallop, rubs, systolic murmur - GI/Abdominal GI/Abdominal exam: Present: normal bowel sounds, soft, no peritoneal signs. Absent: distended, tenderness - Extremities Exam Extremities exam: Present: warm, radial pulses palpable and symmetrical. Absent : calf tenderness, cyanotic, pedal edema - Neurological Exam Neurological exam: Present: CN II-XII intact, oriented X3, no focal deficits. Absent: pronater drift, facial droop, speech deficit Internal Medicine: Result - Labs CBC & Chem 7: 10/25/16 08:24 10/25/16 08:24 Labs: Short CBC 10/25/16 Range/Units 08:24 WBC 6.3 (4.3-11.1) K/mcL Hgb 12.8 L (12.9-16.9) g/dL Hct 38.6 (37.5-50.1) % Plt Count 108 L (140-400) K/mcL Neutrophils # 4.9 (1.6-8.9) K/mcL BMP 10/25/16 08:24 Sodium 139 D Potassium 4.0 Chloride 110 H Carbon Dioxide 22 BUN 12 Creatinine 0.78 Glucose 160 H Calcium 9.0 - ABG Interpretation ABG results: PT/INR, D-dimer PT 18.3 Seconds (9.4-12.1) H 10/24/16 15:33 Consult Discharge Plan - Plan Referrals: NONE,PCP [Primary Care Provider] -
--- NOTE | 2016-10-25 20:18 | Electrocardiograph Report ---
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
[2016-10-25] MEDS: Vancomycin 1,750 MG in D5% in Water 500 ML IVPB SCH (20:46)
[2016-10-25] MEDS: Melatonin 3 MG TABLET PO PRN (23:24)
[2016-10-26] MEDS: Ipratropium/Albuterol Neb 3 ML IH SCH ×2 (04:43→09:48)
[2016-10-26 05:12] LABS: Basophils % 0.1 %; Eosinophils # 0.2 K/mcL (0.0-0.6); Eosinophils % 1.6 %; Hematocrit 36.6 % (37.5-50.1); Immature Granulocytes % 0.3 % (0-4); Lymphocytes % 32.7 %; Mean Corpuscular HGB Conc 32.8 g/dL (31.6-35.5); Mean Corpuscular Volume 85.3 fL (83.0-100.0); Mean Platelet Volume 12.1 fL (9.4-12.4); Monocytes # 0.9 K/mcL (0.0-1.3); Monocytes % 9.4 %; Neutrophils # 5.2 K/mcL (1.6-8.9); Platelet Count 114 K/mcL (140-400); Red Blood Count 4.29 M/mcL (4.19-5.50); Segmented Neutrophils % 55.9 %
[2016-10-26 05:39] LABS: BUN/Creatinine Ratio 16 (6-26); Blood Urea Nitrogen 13 mg/dL (8-26); Calcium 8.7 mg/dL (8.6-10.8); Carbon Dioxide 24 mEq/L (19-29); Chloride 111 mEq/L (98-109); Glucose 116 mg/dL (70-99); Magnesium 1.9 mg/dL (1.6-2.6); Osmolality,Calculated 293 (280-300); Potassium 4.1 mEq/L (3.5-4.5); Sodium 141 mEq/L (136-145); eGFR For African Americans > 60 (> 60); eGFR For Non-African Americans > 60 (> 60)
[2016-10-26] MEDS: *HR* Enoxaparin 40 MG/0.4 ML SYRINGE SQ SCH (06:44)
--- NOTE | 2016-10-26 08:09 | Infectious Disease Progress No ---
Date of Encounter: 10/26/16 Time of Encounter: 08:09 - Assessment and Plan (1) Acute infective endocarditis Current Visit: Yes Status: Acute Modified Humphreys's Criteria: Two major (MRSA bacteremia and valvular vegetations) and two minor (fever, IV drug use) criteria for infective endocarditis Transthoracic Echocardiogram performed 10/25/16 revealed LVEF 60-65% with thickened tricuspid valve with evidence of vegetation on the tip of the anterior leaflet. Difficult to quantify precisely, but is about 0.87 cm x 0.99 cm. There is resultant malcoaptation of the TV leaflets and severe eccentric tricuspid regurgitation directed towards the interatrial septum. There is also a subvalvular echodensity as well as an echodensity at the base of the septal leaflet possibly shared services representative of vegetations as well. CXR which showed LLL opacity consistent with atelectasis or pnuemonia and nodule like density overlying the left lung base which may be due to nipple shadow or a true pulmonary nodule. CTA revealed scattered ground-glass opacities are seen within the left upper and bilateral lower lobes, which may represent a multifocal infectious or inflammatory process. There appears to be scarring within the left lower lobe. Blood cultures collected 10/24/16 were positve for MRSA in 2/2 sets He was started on vancomycin, levaquin, and zosyn 10/24/16 Recommendations: At this point, repeat blood cultures in 48 hours continue vancomycin with goal trough around 15-20 duration of treatment 6-8 weeks monitor labs including renal function will need a picc line prior to d/c?? but patient is IVDU so i'm not sure what the plan is, will discuss with nurse outreach case manager. Qualifiers: Infective endocarditis organism: bacterial Qualified Code(s): I33.0 - Acute and subacute infective endocarditis (2) Septic pulmonary embolism Current Visit: Yes Status: Acute causative organism likely MRSA continue vancomycin Qualifiers: Chronicity: acute Acute cor pulmonale presence: without acute cor pulmonale Qualified Code(s): I26.90 - Septic pulmonary embolism without acute cor pulmonale (3) Sepsis Current Visit: Yes Status: Acute Two SIRS criteria of fever of 103, tachycardia, and bacteremia and source of infection Labs on admission revealed normal WBC and Lactic acid levels Blood cultures collected 10/24/16 were positve for MRSA in 2/2 sets He was started on vancomycin, levaquin, and zosyn 10/24/16 Qualifiers: Sepsis type: methicillin resistant Staphylococcus aureus Qualified Code(s) : A41.02 - Sepsis due to Methicillin resistant Staphylococcus aureus (4) IV drug abuse Current Visit: Yes Status: Chronic (5) Hepatitis C Current Visit: Yes Status: Acute Management per primary team Qualifiers: Viral hepatitis chronicity: chronic Hepatic coma status: without hepatic coma Qualified Code(s): B18.2 - Chronic viral hepatitis C (6) Tricuspid regurgitation Current Visit: Yes Status: Acute Chronic. Cardiology consulted Qualifiers: Cardiac valve disease etiology: etiology unspecified Qualified Code(s): I07.1 - Rheumatic tricuspid insufficiency - Subjective Interval history: Patient seen and examined. Temperature was 96.5 F this morning. Patient reports mild amount of hemoptysis 1 last night. He is very anxious and inquiring abut transfer to [place]. He denies fever, chills, chest pain, shortness of breath, abdominal pain, nausea, vomiting, diarrhea, or splinter hemorrhages. Infect Dis PN-Objective Data - Labs CBC & Chem 7: 10/26/16 04:45 10/26/16 04:45 Labs: Laboratory Results - last 24 hr 10/25/16 10/25/16 10/25/16 08:24 08:24 08:24 WBC 6.3 RBC 4.49 Hgb 12.8 L Hct 38.6 MCV 86.0 MCH 28.5 MCHC 33.2 RDW 14.7 H Plt Count 108 L MPV 11.1 Immature Gran % 0.3 Seg Neutrophils % 77.2 Lymphocytes % 14.1 Monocytes % 8.2 Eosinophils % 0.0 Basophils % 0.2 Neutrophils # 4.9 Lymphocytes # 0.9 Monocytes # 0.5 Eosinophils # 0.0 Basophils # 0.0 Immature Plt Fraction 7.6 H Sodium Potassium Chloride Carbon Dioxide BUN Creatinine Est GFR ( Amer) Est GFR (Non-Af Amer) BUN/Creatinine Ratio Glucose Calculated Osmolality Calcium Magnesium Hep Bs Antigen Nonreactive Hep Bs Antibody 138.98 Hepatitis C Ab Screen Reactive H HIV Ag/Ab Combo Qual Nonreactive 10/25/16 10/26/16 10/26/16 08:24 04:45 04:45 WBC 9.2 RBC 4.29 Hgb 12.0 L Hct 36.6 L MCV 85.3 MCH 28.0 MCHC 32.8 RDW 15.0 H Plt Count 114 L MPV 12.1 Immature Gran % 0.3 Seg Neutrophils % 55.9 Lymphocytes % 32.7 Monocytes % 9.4 Eosinophils % 1.6 Basophils % 0.1 Neutrophils # 5.2 Lymphocytes # 3.0 Monocytes # 0.9 Eosinophils # 0.2 Basophils # 0.0 Immature Plt Fraction Sodium 139 D 141 Potassium 4.0 4.1 Chloride 110 H 111 H Carbon Dioxide 22 24 BUN 12 13 Creatinine 0.78 0.79 Est GFR ( Amer) > 60 > 60 Est GFR (Non-Af Amer) > 60 > 60 BUN/Creatinine Ratio 15 16 Glucose 160 H 116 H Calculated Osmolality 291 293 Calcium 9.0 8.7 Magnesium 1.9 Hep Bs Antigen Hep Bs Antibody Hepatitis C Ab Screen HIV Ag/Ab Combo Qual Cultures: Serology 10/25/16 10/25/16 Range/Units 08:24 08:24 Hep Bs Antigen Nonreactive (Nonreactive) Hep Bs Antibody 138.98 mIU/mL Hepatitis C Ab Screen Reactive H (Nonreactive) HIV Ag/Ab Combo Qual Nonreactive (Nonreactive) Microbiology 10/24/16 15:33 Peripheral Venipuncture Blood Culture - Preliminary Methicillin Resistant S.aureus 10/24/16 15:13 Peripheral Venipuncture Blood Culture - Preliminary Methicillin Resistant S.aureus 10/24/16 15:06 Urine,Clean Catch Legionella Antigen - Final - Impressions Cardiology Impressions Chest X-Ray 10/24/16 14:55 IMPRESSION: Nodule like density overlying the left lung base which may be due to nipple shadow or a true pulmonary nodule. A follow-up PA and lateral view chest x-ray with nipple markers is recommended. Small amount of left lower lobe atelectasis versus pneumonia. D/ / Wilmer Leblanc MD / Wilmer Leblanc MD Interpreting Provider: Wilmer Leblanc MD Chest CTA 10/24/16 15:20 IMPRESSION: 1. There is no convincing evidence of a pulmonary embolus. 2. Scattered ground-glass opacities are seen within the left upper and bilateral lower lobes, which may represent a multifocal infectious or inflammatory process. 3. There appears to be scarring within the left lower lobe. D/ / Jean Ware MD / Jean Ware MD Interpreting Provider: Jean Ware MD Lab Results, Last 24 hours 10/26/16 10/26/16 04:45 04:45 WBC 9.2 Hgb 12.0 L Hct 36.6 L Plt Count 114 L Sodium 141 Potassium 4.1 Chloride 111 H Carbon Dioxide 24 BUN 13 Creatinine 0.79 Glucose 116 H Calcium 8.7 Magnesium 1.9 Exam - Constitutional Vitals: Temp Pulse Resp BP Pulse Ox 98.2 F 76 15 116/70 97 10/26/16 07:00 10/26/16 07:00 10/26/16 07:00 10/26/16 07:00 10/26/16 07:00 General appearance: cooperative, no acute distress, no febrile - Head Head exam: Present: atraumatic, normal inspection, normocephalic - Eye Eye exam: Present: PERRL, conjuntiva pink. Absent: conjunctival injection - ENT ENT exam: Present: mucous membranes moist, normal oropharynx - Neck Neck exam: Present: normal inspection. Absent: lymphadenopathy, tenderness, thyromegaly - Respiratory Respiratory exam: Present: CTAB. Absent: decreased breath sounds, rales, rhonchi, wheezes - Cardiovascular Cardiovascular exam: Present: RRR, +S1, +S2, systolic murmur (3/6 IMANI) - GI/Abdominal GI/Abdominal exam: Present: normal bowel sounds, soft. Absent: guarding, rebound - Extremities Exam Extremities exam: Present: normal inspection. Absent: pedal edema - Neurological Exam Neurological exam: Present: alert, oriented X3. Absent: altered, motor sensory deficit - Psychiatric Psychiatric exam: Present: anxious, normal affect - Skin Additional comments: Multiple 5 mm excoriations in multiple stages of healing on arms and legs. No Meme nose, Janeway lesions, or splinter hemorrhages noted Consult Discharge Plan - Plan Referrals: NONE,PCP [Primary Care Provider] - Prescriptions: Vancomycin/0.9 % Sod Chloride [Vanco 1.75 G/250 ml-0.9% NaCl] 1.75 gm IV Q8H 28 Days - Attending Attestation I examined this patient and my medical decision-making was reviewed with the Resident Physician. I agree with the documented findings, disposition and treatment plan as described except to the extent set forth below.
[2016-10-26] MEDS: Nicotine 21 MG PATCH.TD24 TD SCH (08:27)
[2016-10-26] MEDS: Vancomycin 1,750 MG in D5% in Water 500 ML IVPB SCH ×2 (09:59→17:49)
[2016-10-26] MEDS: 0.9 % Sodium Chloride 1,000 ML IVC SCH (09:59)
[2016-10-26] MEDS ORDERED: Ipratropium/Albuterol Neb 3 ML IH PRN ×2 (10:45)
--- NOTE | 2016-10-26 13:56 | Discharge Summary ---
Date of Encounter: 10/26/16 Time of Encounter: 11:20 - Discharge Diagnosis (1) Infective endocarditis Priority: Primary Status: Acute Qualifiers: Infective endocarditis organism: bacterial Chronicity: acute Qualified Code(s): I33.0 - Acute and subacute infective endocarditis (2) Pneumonia Priority: Primary Status: Acute Qualifiers: Pneumonia type: due to methicillin-resistant Staphylococcus aureus (MRSA) Laterality: bilateral Lung location: unspecified part of lung Qualified Code (s): J15.212 - Pneumonia due to Methicillin resistant Staphylococcus aureus (3) Sepsis Priority: Primary Status: Acute Qualifiers: Sepsis type: methicillin resistant Staphylococcus aureus Qualified Code(s) : A41.02 - Sepsis due to Methicillin resistant Staphylococcus aureus (4) IV drug abuse Priority: Secondary Status: Chronic (5) Smoker Priority: Secondary Status: Chronic - Discharge Medications Prescriptions: Vancomycin/0.9 % Sod Chloride [Vanco 1.75 G/250 ml-0.9% NaCl] 1.75 gm IV Q8H 28 Days Home Medications: Suboxone 8mg-2mg Tab 1 tab PO BID 10/24/16 [History] Acetaminophen [Tylenol] 650 mg PO Q6HR PRN tab 10/26/16 [Rx] Ibuprofen [Motrin] 600 mg PO TID PRN tab 10/26/16 [Rx] Ipratropium/Albuterol Neb [Duoneb] 3 ml IH [id number] PRN inh 10/26/16 [Rx] LORazepam [Ativan] 1 mg IVP Q4H PRN vial 10/26/16 [Rx] Nicotine Patch [Nicoderm] 21 mg TD DAILY 10/26/16 [Rx] Vancomycin/0.9 % Sod Chloride [Vanco 1.75 G/250 ml-0.9% NaCl] 1.75 gm IV Q8H 28 Days 10/26/16 [Rx] Allergies/Adverse Reactions: Allergies No Known Allergies Allergy (Verified 10/24/16 14:41) Procedures/tests Complete & Pending: Procedures Performed prior 72 hours Category Date Time Status EV echocardiogram Routine Y 10/25/16 18:44 Completed Date of admission: 10/24/16 18:45 Primary care physician: PCP NONE Consults: 10/25/16 12:35 Consult to Head Of Ethics And Compliance [CONS] Routine Reason for SW Consult: poss need for half-way ATB 10/25/16 14:38 Consult to Cardiology [CONS] Routine Comment: Consulting Provider: Cardiology Josie Reason for Consult: Infective endocarditis Call Completed: Yes Consult to Infectious Diseases [CONS] Routine Consulting Provider: Infectious Disease Josie Reason for Consult: Infective endocarditis with h/o- IVDU Call Completed: Yes Discharging clinician: Susan Perez Anticipated date of discharge: 10/26/16 - Patient Status Disposition: Transfer Other Condition: Fair Functional capacity at discharge: independent ambulation Overall status at discharge: patient is not back to baseline - Discharge Instructions Follow Up With: NONE,PCP [Primary Care Provider] - - Diet and Activity Diet: regular diet Hospital course: Mr. Juárez is a 26 year old male - Time Spent with Patient Total time spent providing and/or coordinating discharge services: Greater than 30 minutes (45 min) - Constitutional Vitals: Temp Pulse Resp BP Pulse Ox 98.2 F 76 15 116/70 97 10/26/16 07:00 10/26/16 07:00 10/26/16 07:00 10/26/16 07:00 10/26/16 07:00 General appearance: Present: A&O X 3, answers questions appropriately - Respiratory Respiratory exam: Present: CTAB. Absent: accessory muscle use, rales, rhonchi, wheezes - Cardiovascular Cardiovascular exam: Present: RRR, +S1, +S2. Absent: diastolic murmur, gallop, rubs, systolic murmur
--- NOTE | 2016-10-26 15:06 | Cardiology Progress Note ---
<Tc Singh - Last Filed: 10/26/16 15:14> Date of Encounter: 10/26/16 Time of Encounter: 10:15 Assessment and Plan (1) Infective endocarditis Current Visit: Yes Status: Acute Patient has 2 major ( MRSA bacteremia and valvular vegetations) and 2 minor ( fever, IVDA) DuKes criteria. TTE revals: "Thickened tricuspid valve with evidence of vegetation on the tip of the anterior leaflet. Difficult to quantify precisely, but is about 0.87 cm x 0.99 cm. There is resultant malcoaptation of the TV leaflets and severe eccentric tricuspid regurgitation directed towards the interatrial septum. There is also a subvalvular echodensity as well as an echodensity at the base of the septal leaflet possibly insurance follow up representative of vegetations as well." Patient reports history of valvular regurgitation. I have requested records from [facility]. These are still pending. Currently he is hemodynamically stable. No signs of heart failure on exam. He has multifocal pneumonia seen on CTA. I reviewed these images. Would consider that these are possible septic emboli. Recommendations: Patient has Tricuspid vegetation with severe tricuspid regurgitaiton. Not currently in heart failure but at risk. Recommend evaluation by CT surgery. Niravn is not agreeable to this at this time. He states he understands that his valvular abnormality may lead to heart failure, continued infections, as well as other complications. He states he will discuss with his family. We will review prior echocardiograms to see if his severe tricuspid regurgitation is new. Records from [facility] are still pending. appreciate infectious disease input antibiotics per ID. At this time kelby not agreeable to evaluation by CT surgery. Cardiology will sign off at this time. Please call if we can be of further assistance. Qualifiers: Infective endocarditis organism: bacterial Chronicity: acute Qualified Code(s): I33.0 - Acute and subacute infective endocarditis (2) Tricuspid regurgitation Current Visit: Yes Status: Acute severe. No signs of heart failure at this time. We will attempt to obtain prior echocardiograms from [facility]. Qualifiers: Cardiac valve disease etiology: etiology unspecified Qualified Code(s): I07.1 - Rheumatic tricuspid insufficiency (3) Right bundle branch block Current Visit: Yes Status: Acute (4) Sepsis Current Visit: Yes Status: Acute patient met sepsis criteria on admisison with fever, tachycardia and bacteremia. Source is likely from IV drug use. currently on IV antibiotics. management per primary team. Qualifiers: Qualified Code(s): A41.9 - Sepsis, unspecified organism (5) Polysubstance abuse Current Visit: Yes Status: Acute patient not agreeable to any rehab at this time. He states his suboxone is enough. (6) Bacteremia Current Visit: Yes Status: Acute appears to be MRSA by PCR. agree with ID consult. Discussion w patient/family: The assessment and plan as outlined above was discussed with the patient and/or family members who expressed understanding and agreement. All questions were answered. Thank you for involving us in the care of your patient. Please call with any questions. Subjective Principal diagnosis: Endocarditis Interval history: No major events overnight. Patient has no complaints at this time. Specifically he denies chest pain or discomfort. dyspnea, cough, wheeze. He dose states that he had some diaphoresis overnight which has resolved. He denies any focal motor or sensory deficits. He has no further complaints or concerns at this time. Objective General: Conversant, No Apparent Distress HEENT: Atraumatic, Normocephaly, Mucus Membranes Moist Neck: No JVD, Normal carotid pulses Cardiac: Reg Rate and Rhythm, Normal S1 and S2, Other (Has 3/6 systolic murmuer heard best at the lower left sternal border. ) Lungs: Normal Breath Sounds, No Wheeze, Rales, Rhonchi Neuro: Alert and responsive, No focal deficits noted Abdomen: Soft, Non-Tender Skin: No rashes noted on visualized skin, Other (he has some old benson and small lesions on arms and legs. unchanged from yesterday. ) Musculoskeletal: No Chest Wall Tenderness Extremities: No Clubbing, No Cyanosis, No Edema Results 10/26/16 04:45 10/26/16 04:45 Lab Results 10/26/16 10/26/16 04:45 04:45 WBC 9.2 Hgb 12.0 L Hct 36.6 L Plt Count 114 L Sodium 141 Potassium 4.1 Chloride 111 H Carbon Dioxide 24 BUN 13 Creatinine 0.79 Glucose 116 H Calcium 8.7 Magnesium 1.9 Consult Discharge Plan - Plan Referrals: NONE,PCP [Primary Care Provider] - Prescriptions: Vancomycin/0.9 % Sod Chloride [Vanco 1.75 G/250 ml-0.9% NaCl] 1.75 gm IV Q8H 28 Days <Veronika Cedillo - Last Filed: 10/26/16 16:50> Date of Encounter: 10/26/16 Assessment and Plan Discussion w patient/family: I examined this patient and my medical decision-making was reviewed with the Resident Physician. I agree with the documented findings, disposition and treatment plan. Stopped by twice to see Mr. Juárez who was not in his room. Per nursing staff , he is being discharged. Discussed consideration for surgical evaluation with patient yesterday who declined. He again declined today with our medical lab tech instructor. It is unclear whether the patient was compliant with course of antibiotic therapy in March and therefore unclear how long the current vegetations have been present. Again, there are multiple mobile vegetations with a degenerated poorly functioning tricuspid valve and severe TR and will need surgical evaluation. However, patient has declined and appears he will be discharged. We will sign off. Please call with questions. Objective Vital Signs, Last 4 Hours Pulse Resp BP Pulse Ox 10/26/16 15:00 80 15 122/73 98 Results 10/26/16 04:45 10/26/16 04:45 Lab Results 10/26/16 10/26/16 04:45 04:45 WBC 9.2 Hgb 12.0 L Hct 36.6 L Plt Count 114 L Sodium 141 Potassium 4.1 Chloride 111 H Carbon Dioxide 24 BUN 13 Creatinine 0.79 Glucose 116 H Calcium 8.7 Magnesium 1.9
[2016-10-26] MEDS: *HR* LORazepam 2 MG/ML VIAL IVP PRN ×2 (15:47→20:33)
--- NOTE | 2016-10-26 18:13 | Internal Med Progress Note ---
Date of Encounter: 10/26/16 Time of Encounter: 11:20 - Assessment and plan (1) Infective endocarditis Current Visit: Yes Status: Acute Assessment and plan: Patient has history of IV drug abuse and previous history of endocarditis, presents with fever, positive blood cultures and echocardiogram evidence of severe tricuspid regurgitation and multiple vegetations on tricuspid valve. Currently shows no signs of heart failure. Hemodynamically stable. Continue IV vancomycin. Cardiology consult and follow-up appreciated, currently signed off with no further recommendations. Infectious diseases on board. High risk for complications including cardiac decompensation, respiratory failure, cardiogenic shock. Patient will require long-term IV antibiotics. He currently refuses to be placed at an extended care facility due to history of IV drug abuse and insists on being discharged home with IV antibiotics. Attempted to transfer patient to [facility] in [place], however this was declined as patient does not seem to require higher level of care at this time. Qualifiers: Infective endocarditis organism: bacterial Chronicity: acute Qualified Code(s): I33.0 - Acute and subacute infective endocarditis (2) Pneumonia Current Visit: Yes Status: Acute Assessment and plan: Patient is noted to have groundglass opacities and changes suggestive of septic emboli in bilateral lungs, likely associated with infectious endocarditis and IV drug abuse. 2 out of 2 initial blood cultures grew MRSA. Contact precautions and continue IV vancomycin. Infectious diseases is on board. Continue supportive care and supplemental oxygen. Qualifiers: Pneumonia type: due to methicillin-resistant Staphylococcus aureus (MRSA) Laterality: bilateral Lung location: unspecified part of lung Qualified Code (s): J15.212 - Pneumonia due to Methicillin resistant Staphylococcus aureus (3) Sepsis Current Visit: Yes Status: Resolved Assessment and plan: Patient admitted with fever, tachycardia with underlying infectious endocarditis , septic emboli to bilateral lungs. Improving now. Continue IV antibiotics, and supportive care. High risk for complications. Qualifiers: Sepsis type: methicillin resistant Staphylococcus aureus Qualified Code(s) : A41.02 - Sepsis due to Methicillin resistant Staphylococcus aureus (4) IV drug abuse Current Visit: Yes Status: Chronic Assessment and plan: software engineer web services on board. Patient continues to request to be discharged home with IV access and long-term antibiotics. This is deemed to be high risk given his history of IV drug abuse and recent use. (5) Smoker Current Visit: Yes Status: Chronic - Subjective Interval history: Reports feeling better; improved fever/chills, generalized bodyaches, and fatigue; Requests to be transferred to [facility] in [place] due to having a previous hospitalization there. He insists on being discharged home with IV access and home health services for long-term IV antibiotics. Also request for Suboxone, which is nonformulary; cannot be brought in from patient's home as he claims he ran out of this medication. - Constitutional Vitals: Temp Pulse Resp BP Pulse Ox 98.2 F 80 15 122/73 98 10/26/16 07:00 10/26/16 15:00 10/26/16 15:00 10/26/16 15:00 10/26/16 15:00 General appearance: Present: A&O X 3, answers questions appropriately - Respiratory Respiratory exam: Present: CTAB. Absent: accessory muscle use, rales, rhonchi, wheezes - Cardiovascular Cardiovascular exam: Present: RRR, +S1, +S2. Absent: diastolic murmur, gallop, rubs, systolic murmur - GI/Abdominal GI/Abdominal exam: Present: normal bowel sounds, soft, no peritoneal signs. Absent: distended, tenderness - Neurological Exam Neurological exam: Present: CN II-XII intact, oriented X3, no focal deficits. Absent: pronater drift, facial droop, speech deficit Internal Medicine: Result - Labs CBC & Chem 7: 10/26/16 04:45 10/27/16 04:26 Labs: Short CBC 10/26/16 Range/Units 04:45 WBC 9.2 (4.3-11.1) K/mcL Hgb 12.0 L (12.9-16.9) g/dL Hct 36.6 L (37.5-50.1) % Plt Count 114 L (140-400) K/mcL Neutrophils # 5.2 (1.6-8.9) K/mcL BMP 10/26/16 04:45 Sodium 141 Potassium 4.1 Chloride 111 H Carbon Dioxide 24 BUN 13 Creatinine 0.79 Glucose 116 H Calcium 8.7 - ABG Interpretation ABG results: PT/INR, D-dimer PT 18.3 Seconds (9.4-12.1) H 10/24/16 15:33 Consult Discharge Plan - Plan Referrals: NONE,PCP [Primary Care Provider] - Prescriptions: Vancomycin/0.9 % Sod Chloride [Vanco 1.75 G/250 ml-0.9% NaCl] 1.75 gm IV Q8H 28 Days
[2016-10-26] MEDS: Melatonin 3 MG TABLET PO PRN (20:33)
[2016-10-27] MEDS: *HR* LORazepam 2 MG/ML VIAL IVP PRN ×6 (00:57→21:46)
[2016-10-27] MEDS: Vancomycin 1,750 MG in D5% in Water 500 ML IVPB SCH ×3 (01:09→17:29)
[2016-10-27 05:27] LABS: BUN/Creatinine Ratio 15 (6-26); Blood Urea Nitrogen 11 mg/dL (8-26); Calcium 8.9 mg/dL (8.6-10.8); Carbon Dioxide 22 mEq/L (19-29); Chloride 106 mEq/L (98-109); Glucose 76 mg/dL (70-99); Osmolality,Calculated 282 (280-300); Potassium 3.9 mEq/L (3.5-4.5); Sodium 137 mEq/L (136-145); eGFR For African Americans > 60 (> 60); eGFR For Non-African Americans > 60 (> 60)
[2016-10-27] MEDS: *HR* Enoxaparin 40 MG/0.4 ML SYRINGE SQ SCH (06:09)
[2016-10-27] MEDS: Nicotine 21 MG PATCH.TD24 TD SCH (08:56)
--- NOTE | 2016-10-27 13:54 | Infectious Disease Progress No ---
Date of Encounter: 10/27/16 Time of Encounter: 13:52 - Assessment and Plan (1) Sepsis Current Visit: Yes Status: Acute The patient had 2 SIRS criteria upon admission. Likely secondary to bacteremia and endocarditis. Improved. Patient has been afebrile. Tachycardia has resolved. Blood cultures drawn 10/24/16 are +2 out of 2 sets for MRSA. Additional blood culture drawn 1 set on 10/26/16 is no growth to date. Qualifiers: Qualified Code(s): A41.9 - Sepsis, unspecified organism (2) Bacteremia Current Visit: Yes Status: Acute Causative organism: MRSA. Source: Likely IV drug use. Complicated secondary to acute infective endocarditis and septic emboli. Blood cultures drawn 10/24/16 are +2 out of 2 sets for MRSA. Blood cultures drawn 10/26/16 1 set is no growth to date. Repeat blood cultures drawn this morning 2 sets are currently pending. Continue vancomycin IV. Pharmacy to dose. Goal trough approximately 15. Vancomycin trough this morning was 21.1. Duration of treatment depends on the clinical picture, but due to the complicated nature of his bacteremia and endocarditis, the patient will likely require 6 weeks of IV antibiotics. Monitor renal function and for drug toxicity and dose adjust antibiotics. registered nurse surgical services is following to assist with discharge planning. The patient will require placement at an extended care facility for the duration of his IV antibiotic therapy due to his recent history of IV drug use. The patient is unagreeable to this, we can consider using oral antibiotics, but there is a high risk of treatment failure given that the patient has endocarditis. (3) Acute infective endocarditis Current Visit: Yes Status: Acute Causative organism: MRSA. Likely secondary to IV drug use. Modified Humphreys's Criteria: Two major (MRSA bacteremia and valvular vegetations) and two minor (fever, IV drug use) criteria for infective endocarditis. Transthoracic Echocardiogram performed 10/25/16 revealed LVEF 60-65% with thickened tricuspid valve with evidence of vegetation on the tip of the anterior leaflet. Difficult to quantify precisely, but is about 0.87 cm x 0.99 cm. There is resultant malcoaptation of the TV leaflets and severe eccentric tricuspid regurgitation directed towards the interatrial septum. There is also a subvalvular echodensity as well as an echodensity at the base of the septal leaflet possibly solar sales representative and assessor of vegetations as well. Most recent set of blood cultures drawn on 10/26/16 was only 1 set. We'll repeat additional 2 sets this morning and await those results. Continue vancomycin as above. Duration of treatment depends on the clinical picture, but likely 6 weeks of IV antibiotics will be required. Await placement of PICC line until we have 2 sets of blood cultures that are negative for at least 48 hours. Monitor renal function and for drug toxicity and dose adjust antibiotics based on creatinine clearance and Vanco levels. Qualifiers: Infective endocarditis organism: bacterial Qualified Code(s): I33.0 - Acute and subacute infective endocarditis (4) Septic pulmonary embolism Current Visit: Yes Status: Acute Causative organism likely MRSA. Likely secondary to right-sided endocarditis. Continue vancomycin as above. Qualifiers: Chronicity: acute Acute cor pulmonale presence: without acute cor pulmonale Qualified Code(s): I26.90 - Septic pulmonary embolism without acute cor pulmonale (5) Tricuspid regurgitation Current Visit: Yes Status: Acute Chronic. Cardiology consulted. Patient declines further cardiothoracic surgery evaluation. Qualifiers: Cardiac valve disease etiology: etiology unspecified Qualified Code(s): I07.1 - Rheumatic tricuspid insufficiency (6) Polysubstance abuse Current Visit: Yes Status: Chronic (7) Hepatitis C Current Visit: Yes Status: Acute Management per primary team. Consider outpatient referral to GI for evaluation of the patient meets criteria for treatment. Qualifiers: Viral hepatitis chronicity: chronic Hepatic coma status: without hepatic coma Qualified Code(s): B18.2 - Chronic viral hepatitis C - Subjective Interval history: Patient seen and examined. No acute events noted overnight. Patient resting quietly in bed. States overall he feels better. Denies any fevers or chills or rigors. Denies any chest pain, shortness of breath, or cough. Denies any nausea , vomiting, diarrhea, constipation. Denies any abdominal pain and states his appetite is okay. Denies any urinary complaints. Denies any pain in his joints or extremities or back. Denies any oral thrush or new skin lesions. Infect Dis PN-Objective Data - Labs CBC & Chem 7: 10/26/16 04:45 10/27/16 04:26 Labs: Laboratory Results - last 24 hr 10/25/16 10/27/16 10/27/16 08:24 04:26 09:00 Sodium 137 Potassium 3.9 Chloride 106 Carbon Dioxide 22 BUN 11 Creatinine 0.75 Est GFR ( Amer) > 60 Est GFR (Non-Af Amer) > 60 BUN/Creatinine Ratio 15 Glucose 76 Calculated Osmolality 282 Calcium 8.9 Vancomycin Trough 21.1 H* Hep B Core Total Ab NEGATIVE Cultures: Cultures 10/26/16 04:45 Blood Culture - Preliminary Peripheral Venipuncture No growth. Serology 10/25/16 10/25/16 10/25/16 Range/Units 08:24 08:24 08:24 Hep Bs Antigen Nonreactive (Nonreactive) Hep Bs Antibody 138.98 mIU/mL Hep B Core Total Ab NEGATIVE (Negative) Hepatitis C Ab Screen Reactive H (Nonreactive) HIV Ag/Ab Combo Qual Nonreactive (Nonreactive) Exam - Constitutional Vitals: Temp Pulse Resp BP Pulse Ox 98.5 F 85 17 149/65 95 10/27/16 05:21 10/27/16 05:21 10/27/16 05:21 10/27/16 05:21 10/27/16 05:21 General appearance: average body habitus, cooperative, no acute distress - Head Head exam: Present: atraumatic, normal inspection, normocephalic - Eye Eye exam: Present: EOMI, normal appearance, PERRL Pupils: Present: normal accommodation Additional comments: No subconjunctival hemorrhage noted. - ENT ENT exam: Present: mucous membranes moist - Neck Neck exam: Present: normal inspection - Respiratory Respiratory exam: Present: CTAB. Absent: rales, respiratory distress, rhonchi, wheezes - Cardiovascular Cardiovascular exam: Present: diastolic murmur, RRR, +S1, +S2 - GI/Abdominal GI/Abdominal exam: Present: normal bowel sounds, soft. Absent: distended, tenderness - Extremities Exam Extremities exam: Present: normal inspection. Absent: joint swelling, pedal edema, tenderness Additional comments: No endocarditis stigmata noted. - Back Exam Back exam: Present: normal inspection. Absent: paraspinal tenderness, vertebral tenderness - Neurological Exam Neurological exam: Present: alert, oriented X3, no focal deficits - Psychiatric Psychiatric exam: Present: normal affect, normal mood - Skin Skin exam: Present: dry, intact, normal color, warm Consult Discharge Plan - Plan Referrals: NONE,PCP [Primary Care Provider] - Prescriptions: Vancomycin/0.9 % Sod Chloride [Vanco 1.75 G/250 ml-0.9% NaCl] 1.75 gm IV Q8H 28 Days
[2016-10-27] MEDS: Melatonin 3 MG TABLET PO PRN (20:26)
[2016-10-28] MEDS: Vancomycin 1,750 MG in D5% in Water 500 ML IVPB SCH ×3 (01:36→17:41)
[2016-10-28] MEDS: *HR* LORazepam 2 MG/ML VIAL IVP PRN ×6 (01:37→20:44)
[2016-10-28] MEDS: *HR* Enoxaparin 40 MG/0.4 ML SYRINGE SQ SCH (05:32)
[2016-10-28] MEDS: Nicotine 21 MG PATCH.TD24 TD SCH (08:38)
--- NOTE | 2016-10-28 13:43 | Internal Med Progress Note ---
Date of Encounter: 10/27/16 Time of Encounter: 11:45 - Assessment and plan (1) Infective endocarditis Current Visit: Yes Status: Acute Assessment and plan: Patient has history of IV drug abuse and previous history of endocarditis, presents with fever, positive blood cultures and echocardiogram evidence of severe tricuspid regurgitation and multiple vegetations on tricuspid valve. Currently shows no signs of heart failure. Hemodynamically stable. Continue IV vancomycin- day 3. Cardiology consult and follow-up appreciated, currently signed off with no further recommendations. Infectious diseases on board. High risk for complications including cardiac decompensation, respiratory failure, cardiogenic shock. Patient will require long-term IV antibiotics. He currently refuses to be placed at an extended care facility due to history of IV drug abuse and insists on being discharged home with IV antibiotics. Attempted to transfer patient to [facility] in [place], however this was declined as patient does not seem to require higher level of care at this time. Had a detailed discussion about his discharge disposition along with patient's nurse, web content & social media manager and pharmacist-patient is willing to be transferred to rehabilitation facility in [place] and provided 2 names to the web content & social media manager, she will continue working on these. Qualifiers: Infective endocarditis organism: bacterial Chronicity: acute Qualified Code(s): I33.0 - Acute and subacute infective endocarditis (2) Pneumonia Current Visit: Yes Status: Acute Assessment and plan: Patient is noted to have groundglass opacities and changes suggestive of septic emboli in bilateral lungs, likely associated with infectious endocarditis and IV drug abuse. 2 out of 2 initial blood cultures grew MRSA. Repeat blood cultures are so far negative. Contact precautions and continue IV vancomycin. Infectious diseases is on board. Continue supportive care and supplemental oxygen. Qualifiers: Pneumonia type: due to methicillin-resistant Staphylococcus aureus (MRSA) Laterality: bilateral Lung location: unspecified part of lung Qualified Code (s): J15.212 - Pneumonia due to Methicillin resistant Staphylococcus aureus (3) Sepsis Current Visit: Yes Status: Resolved Qualifiers: Sepsis type: methicillin resistant Staphylococcus aureus Qualified Code(s) : A41.02 - Sepsis due to Methicillin resistant Staphylococcus aureus (4) IV drug abuse Current Visit: Yes Status: Chronic Assessment and plan: human services instructor on board. Patient continues to request to be discharged home with IV access and long-term antibiotics. This is deemed to be high risk given his history of IV drug abuse and recent use. Awaiting risk management's recommendation. (5) Smoker Current Visit: Yes Status: Chronic - Subjective Interval history: Reports feeling better; improved fever/chills, generalized bodyaches, and fatigue; Continues to request to be discharged home with IV antibiotics, under the supervision of his father and he would like to continue going to work every day. - Constitutional Vitals: Temp Pulse Resp BP Pulse Ox 98.1 F 77 16 127/82 99 10/28/16 07:59 10/28/16 07:59 10/28/16 07:59 10/28/16 07:59 10/28/16 07:59 General appearance: Present: A&O X 3, answers questions appropriately - Respiratory Respiratory exam: Present: CTAB. Absent: accessory muscle use, rales, rhonchi, wheezes - Cardiovascular Cardiovascular exam: Present: RRR, +S1, +S2. Absent: diastolic murmur, gallop, rubs, systolic murmur - GI/Abdominal GI/Abdominal exam: Present: normal bowel sounds, soft, no peritoneal signs. Absent: distended, tenderness Internal Medicine: Result - Labs CBC & Chem 7: 10/26/16 04:45 10/27/16 04:26 - ABG Interpretation ABG results: PT/INR, D-dimer PT 18.3 Seconds (9.4-12.1) H 10/24/16 15:33 Consult Discharge Plan - Plan Referrals: NONE,PCP [Primary Care Provider] - Prescriptions: Vancomycin/0.9 % Sod Chloride [Vanco 1.75 G/250 ml-0.9% NaCl] 1.75 gm IV Q8H 28 Days
--- NOTE | 2016-10-28 13:44 | Internal Med Progress Note ---
Date of Encounter: 10/28/16 Time of Encounter: 13:43 - Assessment and plan (1) Infective endocarditis Current Visit: Yes Status: Acute Assessment and plan: Patient has history of IV drug abuse and previous history of endocarditis, presents with fever, positive blood cultures and echocardiogram evidence of severe tricuspid regurgitation and multiple vegetations on tricuspid valve. Currently shows no signs of heart failure. Hemodynamically stable. Continue IV vancomycin- day 4. Cardiology consult and follow-up appreciated, currently signed off with no further recommendations. Infectious diseases on board. Plan for PICC line placement after 48 hours of negative blood cultures. Patient will require long-term IV antibiotics. He currently refuses to be placed at an extended care facility due to history of IV drug abuse and insists on being discharged home with IV antibiotics. Attempted to transfer patient to [facility] in [place], however this was declined as patient does not seem to require higher level of care at this time. Patient is currently calm and more accepting of his discharge disposition. special services supervisor will follow-up on the plan to transfer him to rehabilitation facility in [place], close to his family, with primary care provider follow-up. Qualifiers: Infective endocarditis organism: bacterial Chronicity: acute Qualified Code(s): I33.0 - Acute and subacute infective endocarditis (2) Pneumonia Current Visit: Yes Status: Acute Assessment and plan: Patient is noted to have groundglass opacities and changes suggestive of septic emboli in bilateral lungs, likely associated with infectious endocarditis and IV drug abuse. 2 out of 2 initial blood cultures grew MRSA. Repeat blood cultures are so far negative. Contact precautions and continue IV vancomycin. Infectious diseases is on board. Continue supportive care and supplemental oxygen. Qualifiers: Pneumonia type: due to methicillin-resistant Staphylococcus aureus (MRSA) Laterality: bilateral Lung location: unspecified part of lung Qualified Code (s): J15.212 - Pneumonia due to Methicillin resistant Staphylococcus aureus (3) Sepsis Current Visit: Yes Status: Resolved Qualifiers: Sepsis type: methicillin resistant Staphylococcus aureus Qualified Code(s) : A41.02 - Sepsis due to Methicillin resistant Staphylococcus aureus (4) IV drug abuse Current Visit: Yes Status: Chronic Assessment and plan: special services supervisor on board. Patient continues to request to be discharged home with IV access and long-term antibiotics. This is deemed to be high risk given his history of IV drug abuse and recent use. Hospital risk management recommends not to discharge patient home with IV access. Patient is noted to be on outpatient Suboxone treatment, provided by his primary care provider, and he currently ran out of this, cannot be brought from his home. Hospital policy does not allow us to treat him with Subutex. Continue when necessary IV Ativan, withdrawal symptoms are much better today. (5) Smoker Current Visit: Yes Status: Chronic - Subjective Interval history: No fever/chills, chest pain, dyspnea; doing well, tolerates diet; discussed discharge planning, awaiting placement for cream separator operator antibiotics; calmer today; - Constitutional Vitals: Temp Pulse Resp BP Pulse Ox 98.1 F 77 16 127/82 99 10/28/16 07:59 10/28/16 07:59 10/28/16 07:59 10/28/16 07:59 10/28/16 07:59 General appearance: Present: A&O X 3, answers questions appropriately - Respiratory Respiratory exam: Present: CTAB. Absent: accessory muscle use, rales, rhonchi, wheezes - Cardiovascular Cardiovascular exam: Present: RRR, +S1, +S2. Absent: diastolic murmur, gallop, rubs, systolic murmur - GI/Abdominal GI/Abdominal exam: Present: normal bowel sounds, soft, no peritoneal signs. Absent: distended, tenderness Internal Medicine: Result - Labs CBC & Chem 7: 10/26/16 04:45 10/27/16 04:26 - ABG Interpretation ABG results: PT/INR, D-dimer PT 18.3 Seconds (9.4-12.1) H 10/24/16 15:33 Consult Discharge Plan - Plan Referrals: NONE,PCP [Primary Care Provider] - Prescriptions: Vancomycin/0.9 % Sod Chloride [Vanco 1.75 G/250 ml-0.9% NaCl] 1.75 gm IV Q8H 28 Days
[2016-10-28] MEDS: Melatonin 3 MG TABLET PO PRN (20:45)
[2016-10-29] MEDS: *HR* LORazepam 2 MG/ML VIAL IVP PRN ×7 (00:28→21:21)
[2016-10-29] MEDS: Vancomycin 1,750 MG in D5% in Water 500 ML IVPB SCH ×3 (02:26→17:59)
[2016-10-29 04:21] LABS: Basophils # 0.1 K/mcL (0.0-0.2); Basophils % 0.9 %; Eosinophils # 0.4 K/mcL (0.0-0.6); Eosinophils % 4.4 %; Hematocrit 41.2 % (37.5-50.1); Hemoglobin 13.1 g/dL (12.9-16.9); Immature Granulocytes % 2.3 % (0-4); Lymphocytes # 2.8 K/mcL (0.6-4.6); Lymphocytes % 31.7 %; Mean Corpuscular HGB Conc 31.8 g/dL (31.6-35.5); Mean Corpuscular Hemoglobin 27.2 pg (28.0-33.3); Mean Corpuscular Volume 85.7 fL (83.0-100.0); Neutrophils # 4.3 K/mcL (1.6-8.9); Platelet Count 195 K/mcL (140-400); Red Blood Count 4.81 M/mcL (4.19-5.50); Red Cell Distribution Width 14.5 % (11.5-14.5); Segmented Neutrophils % 49.7 %
[2016-10-29 04:38] LABS: BUN/Creatinine Ratio 15 (6-26); Blood Urea Nitrogen 14 mg/dL (8-26); Calcium 9.5 mg/dL (8.6-10.8); Carbon Dioxide 29 mEq/L (19-29); Chloride 105 mEq/L (98-109); Glucose 133 mg/dL (70-99); Osmolality,Calculated 290 (280-300); Potassium 4.2 mEq/L (3.5-4.5); Sodium 139 mEq/L (136-145); eGFR For African Americans > 60 (> 60); eGFR For Non-African Americans > 60 (> 60)
[2016-10-29 04:49] LABS: Large Platelets Present (Not Present); Platelet Estimate Normal (Normal); Reactive Lymphocytes Present (Not Present); Toxic Granulation Present (Not Present)
[2016-10-29] MEDS: *HR* Enoxaparin 40 MG/0.4 ML SYRINGE SQ SCH (05:02)
[2016-10-29] MEDS: Nicotine 21 MG PATCH.TD24 TD SCH (08:45)
--- NOTE | 2016-10-29 15:28 | Internal Med Progress Note ---
Date of Encounter: 10/29/16 Time of Encounter: 12:00 - Assessment and plan (1) Infective endocarditis Current Visit: Yes Status: Acute Assessment and plan: Patient has history of IV drug abuse and previous history of endocarditis, presents with fever, positive blood cultures and echocardiogram evidence of severe tricuspid regurgitation and multiple vegetations on tricuspid valve. Currently shows no signs of heart failure. Hemodynamically stable. Continue IV Vancomycin- day 5. Cardiology consulted and currently signed off with no further recommendations. Infectious diseases on board. Plan for PICC line placement tomorrow, after 48 hours of negative blood cultures. Patient will require long-term IV antibiotics. He currently refuses to be placed at an extended care facility due to history of IV drug abuse and insists on being discharged home with IV antibiotics. Attempted to transfer patient to [facility] in [place], however this was declined as patient does not seem to require higher level of care at this time. loan services professional will follow-up on the plan to transfer him to rehabilitation facility in [place], close to his family, with primary care provider follow-up. He again wished to be transferred to [facility] in [place], [place] today - reached the Transfer center but their Hospitalists are currently not accepting patients due to being understaffed. Qualifiers: Infective endocarditis organism: bacterial Chronicity: acute Qualified Code(s): I33.0 - Acute and subacute infective endocarditis (2) Pneumonia Current Visit: Yes Status: Acute Assessment and plan: Patient is noted to have groundglass opacities and changes suggestive of septic emboli in bilateral lungs, likely associated with infectious endocarditis and IV drug abuse. 2 out of 2 initial blood cultures grew MRSA. Repeat blood cultures are so far negative. Contact precautions and continue IV vancomycin. Infectious diseases is on board. Continue supportive care and supplemental oxygen. Qualifiers: Pneumonia type: due to methicillin-resistant Staphylococcus aureus (MRSA) Laterality: bilateral Lung location: unspecified part of lung Qualified Code (s): J15.212 - Pneumonia due to Methicillin resistant Staphylococcus aureus (3) Sepsis Current Visit: Yes Status: Resolved Qualifiers: Sepsis type: methicillin resistant Staphylococcus aureus Qualified Code(s) : A41.02 - Sepsis due to Methicillin resistant Staphylococcus aureus (4) IV drug abuse Current Visit: Yes Status: Chronic (5) Smoker Current Visit: Yes Status: Chronic (6) Bacteremia Current Visit: Yes Status: Acute - Subjective Interval history: No fever/chills, chest pain, dyspnea; doing well, tolerates diet; patient requests transfer to [facility] in [place], [place] to be close to his family; - Constitutional Vitals: Temp Pulse Resp BP Pulse Ox 97.7 F 65 16 128/75 98 10/29/16 08:03 10/29/16 08:03 10/29/16 08:03 10/29/16 08:03 10/29/16 08:03 General appearance: Present: A&O X 3, answers questions appropriately - Respiratory Respiratory exam: Present: CTAB (coarse breath sounds B/L). Absent: accessory muscle use, rales, rhonchi, wheezes - Cardiovascular Cardiovascular exam: Present: RRR, +S1, +S2. Absent: diastolic murmur, gallop, rubs, systolic murmur - GI/Abdominal GI/Abdominal exam: Present: normal bowel sounds, soft, no peritoneal signs. Absent: distended, tenderness - Extremities Exam Extremities exam: Present: full ROM, warm, radial pulses palpable and symmetrical. Absent: calf tenderness, cyanotic, pedal edema Internal Medicine: Result - Labs CBC & Chem 7: 10/29/16 04:01 10/29/16 04:01 Labs: Short CBC 10/29/16 Range/Units 04:01 WBC 8.7 (4.3-11.1) K/mcL Hgb 13.1 (12.9-16.9) g/dL Hct 41.2 (37.5-50.1) % Plt Count 195 D (140-400) K/mcL Neutrophils # 4.3 (1.6-8.9) K/mcL BMP 10/29/16 04:01 Sodium 139 Potassium 4.2 Chloride 105 Carbon Dioxide 29 BUN 14 Creatinine 0.94 Glucose 133 H Calcium 9.5 - ABG Interpretation ABG results: PT/INR, D-dimer PT 18.3 Seconds (9.4-12.1) H 10/24/16 15:33 Consult Discharge Plan - Plan Referrals: NONE,PCP [Primary Care Provider] - Prescriptions: Vancomycin/0.9 % Sod Chloride [Vanco 1.75 G/250 ml-0.9% NaCl] 1.75 gm IV Q8H 28 Days
[2016-10-29] MEDS: Melatonin 3 MG TABLET PO PRN (21:21)
[2016-10-30] MEDS: Vancomycin 1,750 MG in D5% in Water 500 ML IVPB SCH ×2 (02:35→10:29)
[2016-10-30] MEDS: *HR* LORazepam 2 MG/ML VIAL IVP PRN ×2 (03:25→09:44)
[2016-10-30] MEDS: *HR* Enoxaparin 40 MG/0.4 ML SYRINGE SQ SCH (06:19)
[2016-10-30 07:54] VITALS: BP 158/87
--- NOTE | 2016-10-30 08:36 | Infectious Disease Progress No ---
Date of Encounter: 10/30/16 Time of Encounter: 08:36 - Assessment and Plan (1) Acute infective endocarditis Status: Acute Causative organism: MRSA. Likely secondary to IV drug use. Modified Humphreys's Criteria: Two major (MRSA bacteremia and valvular vegetations) and two minor (fever, IV drug use) criteria for infective endocarditis. Transthoracic Echocardiogram performed 10/25/16 revealed LVEF 60-65% with thickened tricuspid valve with evidence of vegetation on the tip of the anterior leaflet. Difficult to quantify precisely, but is about 0.87 cm x 0.99 cm. There is resultant malcoaptation of the TV leaflets and severe eccentric tricuspid regurgitation directed towards the interatrial septum. There is also a subvalvular echodensity as well as an echodensity at the base of the septal leaflet possibly specialty sales representative of vegetations as well. Blood cultures drawn on 10/26/16 was only 1 set. Repeat additional 2 sets drawn on 10/27/16 show no growth to date. Continue vancomycin Pharmacy to dose. Goal trough approximately 15. Vancomycin trough 23.7 today. Duration of treatment depends on the clinical picture, but likely 6 weeks of IV antibiotics will be required. Blood cultures are negative for at least 48 hours, proceed with placement of PICC line and transfer to an extended care facility for the duration of his IV antibiotic therapy due to his recent history of IV drug use. If the patient is unagreeable to this, we can consider using oral antibiotics, but there is a high risk of treatment failure given that the patient has endocarditis.. Monitor renal function and for drug toxicity and dose adjust antibiotics based on creatinine clearance and Vanco levels. Qualifiers: Qualified Code(s): I33.0 - Acute and subacute infective endocarditis (2) Septic pulmonary embolism Status: Acute Causative organism likely MRSA. Likely secondary to right-sided endocarditis. Continue vancomycin as above. Qualifiers: Qualified Code(s): I26.90 - Septic pulmonary embolism without acute cor pulmonale (3) Sepsis Status: Resolved Two SIRS criteria of fever of 103, tachycardia, and bacteremia and endocarditis as source of infection Qualifiers: Qualified Code(s): A41.02 - Sepsis due to Methicillin resistant Staphylococcus aureus (4) IV drug abuse Status: Chronic player services representative is following to assist with discharge planning. The patient will require placement at an extended care facility for the duration of his IV antibiotic therapy due to his recent history of IV drug use. If the patient is unagreeable to this, we can consider using oral antibiotics, but there is a high risk of treatment failure given that the patient has endocarditis. (5) Hepatitis C Status: Acute Management per primary team. Consider outpatient referral to GI for evaluation if the patient meets criteria for treatment. Qualifiers: Qualified Code(s): B18.2 - Chronic viral hepatitis C (6) Tricuspid regurgitation Status: Acute Chronic. Cardiology consulted. Patient declines further cardiothoracic surgery evaluation. Qualifiers: Qualified Code(s): I07.1 - Rheumatic tricuspid insufficiency - Subjective Interval history: Patient seen and examined. No acute events overnight. He denies fever, chills , chest pain, shortness of breath, abdominal pain, nausea, vomiting, diarrhea, or new symptoms. Infect Dis PN-Objective Data - Labs CBC & Chem 7: 10/29/16 04:01 10/29/16 04:01 Cultures: Cultures 10/27/16 09:59 Blood Culture - Preliminary Peripheral Venipuncture No growth. 10/27/16 09:56 Blood Culture - Preliminary Peripheral Venipuncture No growth. 10/26/16 04:45 Blood Culture - Preliminary Peripheral Venipuncture No growth. Serology 10/25/16 10/25/16 10/25/16 Range/Units 08:24 08:24 08:24 Hep Bs Antigen Nonreactive (Nonreactive) Hep Bs Antibody 138.98 mIU/mL Hep B Core Total Ab NEGATIVE (Negative) Hepatitis C Ab Screen Reactive H (Nonreactive) HIV Ag/Ab Combo Qual Nonreactive (Nonreactive) Exam - Constitutional Vitals: Temp Pulse Resp BP Pulse Ox 98.5 F 95 17 158/87 96 10/30/16 07:00 10/30/16 07:00 10/30/16 07:00 10/30/16 07:00 10/30/16 07:00 General appearance: cooperative, no acute distress, no febrile - Head Head exam: Present: atraumatic, normal inspection, normocephalic - Eye Eye exam: Present: PERRL, conjuntiva pink Additional comments: No subconjunctival hemorrhage noted. - ENT ENT exam: Present: mucous membranes moist, normal oropharynx Additional comments: Tobacco residue in buccal mucosa - Neck Neck exam: Present: normal inspection. Absent: lymphadenopathy, tenderness, thyromegaly - Respiratory Respiratory exam: Present: CTAB. Absent: rales, rhonchi, wheezes - Cardiovascular Cardiovascular exam: Present: RRR, +S1, +S2 - GI/Abdominal GI/Abdominal exam: Present: normal bowel sounds, soft. Absent: distended, guarding, rebound, tenderness - Extremities Exam Extremities exam: Present: full ROM, normal inspection. Absent: pedal edema Additional comments: No splinter hemorrhages - Neurological Exam Neurological exam: Present: alert, CN II-XII intact, oriented X3. Absent: altered, motor sensory deficit - Psychiatric Psychiatric exam: Present: anxious, normal affect - Skin Skin exam: Present: dry, warm. Absent: cyanosis, erythema, rash Consult Discharge Plan - Plan Referrals: NONE,PCP [Primary Care Provider] - Prescriptions: Vancomycin/0.9 % Sod Chloride [Vanco 1.75 G/250 ml-0.9% NaCl] 1.75 gm IV Q8H 28 Days - Attending Attestation I examined this patient and my medical decision-making was reviewed with the Resident Physician. I agree with the documented findings, disposition and treatment plan as described except to the extent set forth below.
[2016-10-30] MEDS: Nicotine 21 MG PATCH.TD24 TD SCH (09:46)
[2016-10-30] MEDS ORDERED: Aminoglycoside Consult 1 EACH MC ONE (13:04)
--- NOTE | 2016-10-30 17:00 | Discharge Summary ---
Date of Encounter: 10/30/16 Time of Encounter: 12:00 - Discharge Diagnosis (1) Infective endocarditis Priority: Primary Status: Acute Qualifiers: Infective endocarditis organism: bacterial Chronicity: acute Qualified Code(s): I33.0 - Acute and subacute infective endocarditis (2) Pneumonia Priority: Primary Status: Acute Qualifiers: Pneumonia type: due to methicillin-resistant Staphylococcus aureus (MRSA) Laterality: bilateral Lung location: unspecified part of lung Qualified Code (s): J15.212 - Pneumonia due to Methicillin resistant Staphylococcus aureus (3) Sepsis Priority: Primary Status: Resolved Qualifiers: Sepsis type: methicillin resistant Staphylococcus aureus Qualified Code(s) : A41.02 - Sepsis due to Methicillin resistant Staphylococcus aureus (4) IV drug abuse Priority: Secondary Status: Chronic (5) Smoker Priority: Secondary Status: Chronic (6) Bacteremia Priority: Primary Status: Acute - Discharge Medications Prescriptions: Vancomycin/0.9 % Sod Chloride [Vanco 1.75 G/250 ml-0.9% NaCl] 1.75 gm IV Q8H 28 Days Home Medications: Suboxone 8mg-2mg Tab 1 tab PO BID 10/24/16 [History] Acetaminophen [Tylenol] 650 mg PO Q6HR PRN tab 10/26/16 [Rx] Ibuprofen [Motrin] 600 mg PO TID PRN tab 10/26/16 [Rx] Ipratropium/Albuterol Neb [Duoneb] 3 ml IH [id number] PRN inh 10/26/16 [Rx] LORazepam [Ativan] 1 mg IVP Q4H PRN vial 10/26/16 [Rx] Nicotine Patch [Nicoderm] 21 mg TD DAILY 10/26/16 [Rx] Vancomycin/0.9 % Sod Chloride [Vanco 1.75 G/250 ml-0.9% NaCl] 1.75 gm IV Q8H 28 Days 10/26/16 [Rx] Allergies/Adverse Reactions: Allergies No Known Allergies Allergy (Verified 10/24/16 14:41) Date of admission: 10/24/16 18:45 Primary care physician: PCP NONE Consults: 10/25/16 12:35 Consult to Pool Lifeguard [CONS] Routine Reason for SW Consult: poss need for fdc ATB 10/25/16 14:38 Consult to Cardiology [CONS] Routine Comment: Consulting Provider: Cardiology Josie Reason for Consult: Infective endocarditis Call Completed: Yes Consult to Infectious Diseases [CONS] Routine Consulting Provider: Infectious Disease Josie Reason for Consult: Infective endocarditis with h/o- IVDU Call Completed: Yes Discharging clinician: Susan Perez Anticipated date of discharge: 10/30/16 - Patient Status Disposition: Left Against Medical Advice Condition: Fair - Discharge Instructions Follow Up With: NONE,PCP [Primary Care Provider] - Hospital course: Mr. Juárez is a 26 year old male with history of tobacco and IV drug abuse was admitted with complaints of feeling sick, generalized weakness and fever. Patient was noted to have sepsis and MRSA bacteremia, likely secondary to IV drug abuse. CT angiogram of chest showed no evidence of pulmonary embolism but did show bilateral infiltrates, suggestive of multifocal pneumonia or septic emboli. He was started on broad-spectrum IV antibiotics-vancomycin and Zosyn. Echocardiogram was done which showed preserved ejection fraction with multiple vegetations on the thickened tricuspid valve. Patient was continued on IV vancomycin therapy for MRSA bacteremia and acute infectious endocarditis. Cardiology and infectious diseases was consulted. At this time, patient will likely require at least 6 weeks of IV antibiotics with close monitoring of labs to avoid nephrotoxicity. This has been explained to the patient multiple times along with pharmacist, social and political studies professor, nurse and case worker. Patient has been wanting to be discharged home with IV access, which is deemed high risk in this patient with active IV drug use. He decided to leave AGAINST MEDICAL ADVICE today and presented to emergency room in [place], which is close to his family. He was alert and oriented at the time of leaving AGAINST MEDICAL ADVICE. - Time Spent with Patient Total time spent providing and/or coordinating discharge services: Greater than 30 minutes (35 min) - Constitutional Vitals: Temp Pulse Resp BP Pulse Ox 98.5 F 95 17 158/87 96 10/30/16 07:00 10/30/16 07:00 10/30/16 07:00 10/30/16 07:00 10/30/16 07:00 General appearance: Present: A&O X 3, answers questions appropriately - Cardiovascular Cardiovascular exam: Present: RRR, +S1, +S2. Absent: diastolic murmur, gallop, rubs, systolic murmur
[2016-10-30] MEDS ORDERED: Vancomycin 1,500 MG in D5% in Water 250 ML IVPB SCH (18:00)
== END 2016-10-30 13:05 | disposition left against medical advice (07) | DRG 871 ==
LOC: EMEROO 14:22 → 2NENU 14:22 → SUATTDRO 18:45 → 2NENU 10-25 23:55
PROVIDERS: ADMIT Internal Medicine; ATTEND Internal Medicine